=== PATIENT | male | born 1945 | race Caucasian/White ===

== ENCOUNTER → 2019-02-21 | Outpatient (CLI) | payer MEDICARE, BC ==
--- NOTE | 2019-02-21 15:24 | XR ---
EXAMINATION TYPE: XR chest 2V DATE OF EXAM: 02/21/2019 COMPARISON: Prior chest x-ray 06/17/2012 HISTORY: Cough and dysphasia TECHNIQUE: Frontal and lateral views of the chest are obtained. FINDINGS: There is no focal air space opacity, pleural effusion, or pneumothorax seen. The cardiac silhouette size is stable, enlarged. The osseous structures are intact. Patient is post median ster notomy. Aorta is dense. Patient is post aortic valve replacement. IMPRESSION: Stable cardiomegaly.
== END | disposition home or self-care (01) ==
LOC: RADXRMAIN 14:03
PROVIDERS: ATTEND Otolaryngology
DX: I51.7 Cardiomegaly (principal); R13.10 Dysphagia, unspecified
CPT/HCPCS: 71046

== ENCOUNTER → 2019-02-28 | Outpatient (CLI) | payer MEDICARE, BC ==
--- NOTE | 2019-02-28 10:38 | FL ---
EXAMINATION TYPE: FL barium swallow DATE OF EXAM: 02/28/2019 CLINICAL HISTORY: Cough and dysphasia TECHNIQUE: A double contrast esophagram is performed utilizing air and barium. A total of 2.07 declan braden of fluoroscopy time was utilized with 53 fluoroscopic images saved. COMPARISON: None FINDINGS: The esophagus shows normal motility and emptying into the stomach in the upright position h owever in the supine position there is delayed passage of contrast with blunted secondary wave. No te rtiary contractions are identified. There is a small hiatal hernia persistent throughout the examinat ion. On the lateral view there is narrowing of the upper cervical esophagus with the appearance of a cricopharyngeal bar such as on image 26/53 at C5-C6. No significant gastroesophageal reflux was seen during real time performance of this study. However moderate grade intraesophageal reflux is seen on the gravity independent portion of the examination. IMPRESSION: 1. Small hiatal hernia. 2. 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 3. 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
== END | disposition home or self-care (01) ==
LOC: RADUSWWP 09:24
PROVIDERS: ATTEND Otolaryngology
DX: K44.9 Diaphragmatic hernia without obstruction or gangrene (principal); K21.9 Gastro-esophageal reflux disease without esophagitis; K22.2 Esophageal obstruction; R93.3 Abnormal findings on diagnostic imaging of other parts of digestive tract
CPT/HCPCS: 74220

== ENCOUNTER 2019-04-02 10:33 | Day surgery (SDC) | payer MEDICARE, BC ==
[2019-04-01 08:39] VITALS: BMI 38.5
[~2019-04-02 10:33] MED LIST: LACTATED RINGERS 1,000 ML IV SCH; LIDOCAINE 1% 20 ML VIAL (10MG/ML) FOR IV START INTRADERMA PRN
[2019-04-02 11:16] VITALS: TEMP 97.6
[2019-04-02] MEDS ORDERED: PROPOFOL 10 MG/ML 20 ML VIAL IV ONE (12:01)
[2019-04-02] MEDS ORDERED: LIDOCAINE 1% INJ 10MG/ML (20 ML MDV) ONE (12:01)
--- NOTE | 2019-04-02 12:33 | P.PCN ---
Date of Procedure: 04/02/19 Procedure(s) Performed: Brief history: Patient is a pleasant 74 -year-old white male, scheduled for an elective upper endoscopy as well as colonoscopy as a part of evaluation of evaluation of intermittent dysphagia to solids and screening for colorectal neoplasia. He had esophageal surgery as an infant and since then he is been having intermittent dysphagia to solids and liquids. He is hence scheduled for an upper endoscopy with possible dilation. Procedure performed: Esophagogastroduodenoscopy with biopsy Colonoscopy and snare polypectomy Preoperative diagnosis: Intermittent dysphagia to solids Screening for colon cancer Anesthesia: MAC Procedure: After informed consent was obtained from the patient was brought into the endoscopy unit and IV sedation was administered by anesthesia under continuous monitoring. Initially upper endoscopy was done. The Olympus GF 160 video endoscope was inserted inserted into the mouth and esophagus intubated without any difficulty and was gradually advanced into the stomach and duodenum and carefully examined. The bulb and second part of the duodenum appeared normal. The scope was then withdrawn into the stomach adequately insufflated with air and upon careful examination the antrum had mild gastritis and biopsies were done from this area. Thed body, cardia and fundus appeared normal. The scope was then withdrawn into the esophagus. He was a short segment of Nelson's esophagus extending from 39-40 cm to the incisors and this was biopsied. The GE junction was located at 40 cm to the incisors. It appeared regular with no erythema erosions or ulcerations. Rest of the esophagus appeared normal. There was no evidence of esophageal stricture. Patient tolerated the procedure well. At this time the patient continued to remain sedation. Initial digital rectal examination was normal. Olympus CF 160 video colonoscope was then inserted into the rectum and gradually advanced to the cecum without any difficulty. Careful examination was performed as the scope was gradually being withdrawn. The prep wasfair. In the base of the cecum there was a 1.5 cm polyp that was removed by snare polypectomy. The cecum, ascending colon, transverse colon, was normal. In the descending colon there was a sessile polyp that was removed by snare polypectomy. Rest of the descending colon, sigmoid colon and rectum appeared normal. Retroflexion was performed in the rectum and no lesions were noted. Patient tolerated the procedure well. Impression: 1. Upper endoscopy revealed mild antral gastritis and short segment Nelson's esophagus but no evidence of esophageal stricture 2. Colonoscopy revealed 1.5 cm broad-based cecal polyp status post polypectomy and a 5 mm descending colon polyp status post polypectomy. Recommendations: Findings of this examination were discussed with the patient as well as a family. She was was advised to follow with the biopsy results. If the biopsy shows adenoma he can have a repeat colonoscopy in 3 years.
[2019-04-02 13:05] VITALS: BP 158/79; PULSE 55; RESP 16
== END 2019-04-02 13:25 | disposition home or self-care (01) ==
LOC: ORWHC2ENDO 10:33
PROVIDERS: ATTEND Internal Medicine Gastroenterology
DX: Z12.11 Encounter for screening for malignant neoplasm of colon (principal); K29.50 Unspecified chronic gastritis without bleeding; D12.0 Benign neoplasm of cecum; D12.4 Benign neoplasm of descending colon; K22.70 Barrett's esophagus without dysplasia; K21.0 Gastro-esophageal reflux disease with esophagitis; R13.10 Dysphagia, unspecified; Z79.899 Other long term (current) drug therapy; Z88.1 Allergy status to other antibiotic agents; Z88.0 Allergy status to penicillin; Z98.890 Other specified postprocedural states
CPT/HCPCS: 88305; 45385; 43239; J2001; J2704

== ENCOUNTER → 2019-05-03 | Outpatient (CLI) | payer MEDICARE, BC ==
--- NOTE | 2019-05-03 17:33 | CT ---
EXAMINATION TYPE: CT brain wo con DATE OF EXAM: 05/03/2019 COMPARISON: None HISTORY: Dizziness x several weeks. CT DLP: 1162.8 mGycm Automated exposure control for dose reduction was used. FINDINGS: There is mild cerebral cortical atrophy. There is no mass effect nor midline shift. There is no sign of intracranial hemorrhage. The calvarium is intact. IMPRESSION: NEGATIVE CT SCAN OF THE BRAIN. MILD ATROPHY.
== END | disposition home or self-care (01) ==
LOC: RADCTMAIN 11:05
PROVIDERS: ATTEND Internal Medicine
DX: G31.89 Other specified degenerative diseases of nervous system (principal)
CPT/HCPCS: 70450

== ENCOUNTER → 2019-06-17 | Outpatient (CLI) | payer MEDICARE, BC ==
[2019-06-17 17:43] LABS: Albumin/Globulin Ratio 2.67 (1.60-3.17); Anion Gap 10.5 mmol/L (4.00-12.00); BUN/Creat Ratio 27.5 Ratio (12.00-20.00); Calcium 9.2 mg/dL (8.7-10.3); Carbon Dioxide 23.5 mmol/L (21.6-31.8); Globulin 1.5 g/dL (1.6-3.3); Potassium 4.4 mmol/L (3.5-5.5); Total Bilirubin 0.6 mg/dL (0.2-1.2); Total Protein 5.5 g/dL (6.2-8.2)
== END | disposition home or self-care (01) ==
LOC: LABWHC1 10:55
PROVIDERS: ATTEND Internal Medicine Interventional Cardiology
DX: I25.10 Atherosclerotic heart disease of native coronary artery without angina pectoris (principal); Z95.2 Presence of prosthetic heart valve
CPT/HCPCS: 36415; 80053; 83880

== ENCOUNTER → 2019-06-19 | Outpatient (CLI) | payer MEDICARE, BC | END | disposition home or self-care (01) | LOC: CPPFTMAIN 14:16 | PROVIDERS: ATTEND Internal Medicine Interventional Cardiology | DX: R06.00 Dyspnea, unspecified (principal) | CPT/HCPCS: 94060; 94726; 94729 ==

== ENCOUNTER 2019-07-02 06:54 | Day surgery (SDC) | payer MEDICARE, BC ==
[2019-06-30 13:55] VITALS: BMI 23.6
[2019-07-02] MEDS ORDERED: SODIUM CHLORIDE 0.9% 500 ML 500 ML IV ONE (07:35)
[2019-07-02] MEDS ORDERED: CLINDAMYCIN 900 MG in DEXTROSE 5% IN WATER 50 ML IVPB ONE ×2 (07:39)
[2019-07-02] MEDS ORDERED: CLINDAMYCIN 600 MG in SODIUM CHLORIDE 0.9% IRRIGATIO 250 ML IRRIGATION ONE (07:39)
[2019-07-02] MEDS ORDERED: MIDAZOLAM 2 MG/2 ML VIAL ONE (08:18)
[2019-07-02] MEDS ORDERED: diphenhydrAMINE 50 MG/ML 1 ML VIAL ONE (08:18)
[2019-07-02] MEDS ORDERED: fentaNYL (PF) 50 MCG/ML 2 ML AMP ONE (08:18)
[2019-07-02] MEDS ORDERED: IV FLUID CONTINUATION 900 ML IV ONE (08:19)
[2019-07-02 08:26] LABS: HCT 44.8 % (39.0-53.0); HGB 15.3 gm/dL (13.0-17.5); MCH 30.3 pg (25.0-35.0); MCHC 34.1 g/dL (31.0-37.0); MCV 88.7 fL (80.0-100.0); Mean Platelet Volume 6.9; Platelet Count 129 k/uL (150-450); RBC 5.05 m/uL (4.30-5.90); RDW 14.3 % (11.5-15.5); WBC 5.8 k/uL (3.8-10.6)
[2019-07-02] MEDS ORDERED: IOPAMIDOL-250 50ML BTL IV ONE (08:31)
[2019-07-02] MEDS ORDERED: CLINDAMYCIN 150 MG/ML 4 ML VIAL IVPB ONE (08:49)
[2019-07-02] MEDS ORDERED: CLINDAMYCIN 600 MG in SODIUM CHLORIDE 0.9% 250 ML IRRIGATION ONE (08:51)
[2019-07-02] MEDS ORDERED: LIDOCAINE 1% INJ 10MG/ML (20 ML MDV) SQ ONE ×2 (08:58→09:12)
[2019-07-02 09:05] LABS: Eosinophils # (M) 0.12 k/uL (0-0.7); Lymphocytes # (M) 1.86 k/uL (1.0-4.8); Monocytes # (M) 0.41 k/uL (0-1.0); Neutrophils # (M) 3.42 k/uL (1.3-7.7); Neutrophils % (M) 59 %; Nucleated Red Blood Cells 0 /100 WBC (0-0); Total Cells Counted 100
[2019-07-02] MEDS ORDERED: HYDROcodone/APAP 5-325MG 1 EACH TAB PO PRN (10:33)
--- NOTE | 2019-07-02 10:33 | P.PRLE ---
RE: Jhonatan Rod Dear Dr. Cohn Mr. Jhonatan Rod has been quite symptomatic for the last several weeks with tiredness fatigue and intermittent dizziness. He has advanced AV block following TAVR with significant bradycardia He underwent a biventricular pacemaker implantation with His bundle pacing to avoid 100% RV pacing and future cardio myopathy. He is selectively pacing the His bundle and therefore his twelve-lead ECG shows a QRS that is very narrow and about 50 ms after the pacing spike It will look very different from and RV paced rhythm Hopefully this helps preserve his LV size and function Thank you for entrusting me with the care of the patient Warm regards Sincerely Uli Hudson
--- NOTE | 2019-07-02 11:24 | CE ---
CARDIAC ELECTROPHYSIOLOGY REPORT Mr. Jhonatan Rod is a 74-year-old male patient who has been complaining of tiredness and fatigue and dizzy spells for over a month now. He saw Dr. Beasley last week and he was found to be in advanced heart block with high-grade second-degree AV block Mobitz 2 with intermittent third-degree heart block. Beta blockers were discontinued. He comes in again today and on his EKG once again, his heart rates are in the 40s, sinus mechanism with second-degree AV block alternating with intermittent complete heart block with a narrow QRS. A permanent pacemaker was recommended. However, with a standard permanent pacemaker, he will have 100% RV pacing on account of his underlying AV block. Therefore, a biventricular pacemaker was recommended. Patient was brought to the EP lab in a fasting state. Written informed consent was obtained prior to the procedure. The left shoulder area was prepped and draped as per protocol and 1% lidocaine was used for local anesthesia. A 4 cm incision was made parallel to the deltopectoral groove, about 1.5 cm medial to it. The incision was carried down to the level of the pectoralis muscle. A subfascial pocket was made. Hemostasis was assured. The left axillary vein was accessed at 3 separate points under fluoroscopy and via appropriately-sized introducer sheaths 3 leads were positioned. The right atrial lead was a 52 cm, model #5076 serial number [id number]. P waves were 1.9 mV. Pacing impedance 827 ohms. Pacing threshold 0.5 V at 0.5 milliseconds. Ten volt test was negative. The RV lead was positioned in the RV apex. This is a 58 cm, model number Medtronic 5076, serial number [id number]. R-waves were 30 mV. Pacing impedance 668 ohms. Pacing threshold 0.7 V at 0.5 milliseconds. Ten volt test was negative. The third lead was positioned in the His bundle area. The His bundle was mapped. Current of was obtained and this was screwed in and excellent His bundle capture was noted. Nonselective capture was noted up to 1.4 V at 1 millisecond and below that there was fewer selective capture. Complete loss of capture occurred at 0.6 V at 1 milliseconds. All 3 sheaths were removed. The leads were secured to the underlying pectoralis muscle using 2 nonabsorbable sutures. Each pocket was irrigated with antibiotic solution. Leads were connected to the generator. Model number W1TR02, serial number [id number]. The leads and generator were then placed in a subfascial pocket. The wound was closed in 3 layers and dressed per protocol. RESULT: Successful biventricular pacemaker implantation with physiologic septal pacing for high- grade AV block with Mobitz 2 second-degree AV block with intermittent third-degree heart block (third-degree heart block with symptoms of dizziness, lightheadedness and shortness of breath on exertion for over a month). This obviously has persisted despite stopping beta blockers. His heart rates today were still in the 40s with advanced heart block and he underwent successful biventricular pacemaker implantation with physiologic septal pacing. PLAN: Resume beta blockers once again and resume all other home medications. MMODL / IJN: [id number] /
[2019-07-02] MEDS: SODIUM CHLORIDE 0.9% 1,000 ML IV SCH ×2 (11:51)
[2019-07-02] MEDS ORDERED: ACETAMINOPHEN IV (For NPO) 1,000 MG in EMPTY BAG 1 BAG IVPB ONE (12:00)
[2019-07-02] MEDS: CLINDAMYCIN 900 MG in DEXTROSE 5% IN WATER 50 ML IVPB SCH ×4 (14:18→20:52)
[2019-07-02 15:14] VITALS: RESP 18
[2019-07-02] MEDS: ACETAMINOPHEN TAB 325 MG TAB PO PRN ×2 (16:19→23:26)
[2019-07-02 16:47] LABS: Glucose,Whole Blood 119 mg/dL (75-99)
[2019-07-02] MEDS ORDERED: ASPIRIN 81 MG PO SCH (21:30)
[2019-07-02] MEDS ORDERED: ATORVASTATIN 40 MG TAB PO SCH (22:00)
[2019-07-02] MEDS ORDERED: CITALOPRAM HYDROBROMIDE 20 MG TAB PO SCH (22:00)
[2019-07-02] MEDS: DOXAZOSIN 4 MG TAB PO SCH (22:31)
[2019-07-02] MEDS: PANTOPRAZOLE 40 MG TABLET PO SCH (22:32)
[2019-07-02] MEDS: FUROSEMIDE 20 MG TAB PO SCH (22:32)
[2019-07-03] MEDS: CLINDAMYCIN 900 MG in DEXTROSE 5% IN WATER 50 ML IVPB SCH ×4 (04:11→10:24)
[2019-07-03] MEDS: SODIUM CHLORIDE 0.9% 1,000 ML IV SCH ×2 (06:20)
[2019-07-03] MEDS: FUROSEMIDE 20 MG TAB PO SCH (08:07)
[2019-07-03] MEDS: ACETAMINOPHEN TAB 325 MG TAB PO PRN (08:12)
[2019-07-03] MEDS: DOXAZOSIN 4 MG TAB PO SCH (08:13)
[2019-07-03] MEDS: PANTOPRAZOLE 40 MG TABLET PO SCH (08:13)
--- NOTE | 2019-07-03 08:44 | XR ---
EXAMINATION TYPE: XR chest 2V DATE OF EXAM: 07/03/2019 COMPARISON: 02/21/2019 INDICATION: Lead placement check TECHNIQUE: Frontal and lateral views of the chest are obtained. FINDINGS: The heart size is normal. The pulmonary vasculature is normal. The lungs are clear. No pneumothorax is evident. A 3-lead pacemaker has been placed over the left ch est. Sternotomy wires are present from prior surgery. IMPRESSION: 1. No pneumothorax post pacemaker placement.
[2019-07-03] MEDS ORDERED: FINASTERIDE 5 MG TAB PO SCH (09:00)
[2019-07-03] MEDS ORDERED: ISOSORBIDE MONONITRATE 10 MG TAB PO SCH (09:00)
[2019-07-03] MEDS ORDERED: SPIRONOLACTONE 25 MG TAB PO SCH (09:00)
[2019-07-03 11:41] VITALS: BP 145/80; PULSE 72; TEMP 97.8
--- NOTE | 2019-07-03 13:18 | P.DS ---
Providers Attending physician: Uli Hudson Primary care physician: Yinka Cohn [facility] Course: Patient is a 74-year-old male with a past medical history significant for advanced heart block who presented for permanent pacemaker placement. Patient had been having symptoms of tiredness, fatigue, shortness of breath on exertion, and dizziness over the last few weeks. He saw Dr. Beasley in the office was found to be in second-degree AV block type II with intermittent third-degree he art block. Beta blockers were discontinued and he remained in second-degree heart block. Yesterday he underwent successful biventricular pacemaker implantation with septal physiologic pacing. He has done well overnight. No acute events overnight. Patient seen and examined sitting up in his chair. States he has been walking up and down the hallways and his symptoms have completely resolved. States "this is the best he has felt in months". Denies any dizziness, lightheadedness, presyncope or syncope. No chest pain or shortness of breath. Chest x-ray today showed no pneumothorax Device check revealed normally functioning biventricular pacemaker Bedside telemetry reveals biventricular pacing with narrow QRS WBC 5.8, hemoglobin 15.3, platelets 129 Temperature 97.8F, pulse 72, respirations 18, blood pressure 145/80, oxygen saturation 96% on room air Patient seen and examined sitting up in the chair, in no acute distress Lungs are clear to auscultation bilaterally Heart is regular, soft systolic murmur Pacemaker dressing clean dry and intact He does have a history of lymphedema, minimal swelling in the left arm Elevated JVD No lower extremity edema Impression Advanced second-degree AV block type II with intermittent third-degree heart block that is status post biventricular pacemaker with septal physiologic pacing Plan Restart home dose of metoprolol Continue all other cardiac medications Educated the patient to elevate his arm at home and come his fists to help with the edema in his left arm Discussed activity restrictions the patient He is free to be discharged after he completes his antibiotics Follow-up in the device clinic and with Dr. Beasley as previously scheduled Plan - Discharge Summary Discharge Rx Participant: No New Discharge Prescriptions: New Metoprolol Tartrate [Lopressor] 50 mg PO BID #180 tab No Action Citalopram Hydrobromide [CeleXA] 20 mg PO HS Atorvastatin [Lipitor] 40 mg PO HS Spironolactone 50 mg PO Q2D Omeprazole 20 mg PO BID Furosemide [Lasix] 20 mg PO BID Finasteride [Proscar] 5 mg PO DAILY Doxazosin Mesylate 8 mg PO BID Aspirin [Adult Low Dose Aspirin EC] 81 mg PO HS Isosorbide Mononitrate [Ismo] 5 mg PO DAILY Discharge Medication List Aspirin [Adult Low Dose Aspirin EC] 81 mg PO HS 04/01/19 [History] Atorvastatin [Lipitor] 40 mg PO HS 04/01/19 [History] Citalopram Hydrobromide [CeleXA] 20 mg PO HS 04/01/19 [History] Doxazosin Mesylate 8 mg PO BID 04/01/19 [History] Finasteride [Proscar] 5 mg PO DAILY 04/01/19 [History] Furosemide [Lasix] 20 mg PO BID 04/01/19 [History] Omeprazole 20 mg PO BID 04/01/19 [History] Spironolactone 50 mg PO Q2D 04/01/19 [History] Isosorbide Mononitrate [Ismo] 5 mg PO DAILY 07/02/19 [History] Metoprolol Tartrate [Lopressor] 50 mg PO BID #180 tab 07/02/19 [Rx] Follow up Appointment(s)/Referral(s): Ned Beasley MD [STAFF PHYSICIAN] - 07/11/19 8:30 am (Device clinic follow-up same time. Follow Dr. Beasley/Leigha Vivar as previously scheduled 07/11/19 0830 ) Patient Instructions/Handouts: Pacemaker (DC) Activity/Diet/Wound Care/Special Instructions: PATIENT EDUCATION MATERIAL Instructions following a heart rhythm device implant. 1. Keep dressing DRY for 5 DAYS. You may cover the area with Saran or Cling Wrap, prior to a shower. 2. The dressing will be removed in the Device Clinic at [facility]. Absorbable sutures were used to close the wound. 3. Avoid raising the left arm above the shoulder level. 4 week restriction 4. Avoid arm movements, like backscratching, rubbing the head, or pulling on a cord. 4 weeks restriction 5. Gentle range of motion movements of the shoulder, closest to the incision should be performed to avoid a frozen shoulder. (Pendulum exercises of the shoulder) 6. The opposite arm may be used freely. 7. Avoid driving for 7 days. 8. Avoid activities such as golfing, swimming, weed whacking, lifting more than 10 pounds weight, bowling, gymnastics and weight training/lifting. (6 weeks restriction) 9. Activities such as wood chopping with an axe, pull-ups in the gymnasium, power lifting, arc-welding, being close to home induction cooktops will always be a problem. 10. Arm sling is only a reminder not to raise the arm above the head. You do not need to keep the arm completely immobilized. Your free to move the arm and use it and for normal activities. In case of any problems, please call [facility], [place], @ [phone], Attention: Device Clinic Device clinic follow-up in 5 days Follow-up with primary sheet combining operator Dr. Beasley as previously scheduled or in 2-3 months Resume home dose of beta blockers Continue all other medications unchanged Discharge Disposition: HOME SELF-CARE
== END 2019-07-03 13:45 | disposition home or self-care (01) ==
LOC: CATHEP 06:54 → 1SOBS 10:25 → CATHEP 07-03 13:45
PROVIDERS: ATTEND Internal Medicine Clinical Cardiac Electrophysiology
DX: I44.1 Atrioventricular block, second degree (principal); I44.2 Atrioventricular block, complete; R00.1 Bradycardia, unspecified; R53.83 Other fatigue; R42 Dizziness and giddiness; I25.10 Atherosclerotic heart disease of native coronary artery without angina pectoris; I10 Essential (primary) hypertension; I89.0 Lymphedema, not elsewhere classified; G47.33 Obstructive sleep apnea (adult) (pediatric); E78.2 Mixed hyperlipidemia; Z95.2 Presence of prosthetic heart valve; Z79.82 Long term (current) use of aspirin; Z79.899 Other long term (current) drug therapy; Z88.0 Allergy status to penicillin; Z88.1 Allergy status to other antibiotic agents; Z87.891 Personal history of nicotine dependence; Z90.49 Acquired absence of other specified parts of digestive tract; Z96.659 Presence of unspecified artificial knee joint
CPT/HCPCS: 33208; 33225; 85025; 71046; C1769 ×3; C1892; C1898; C2621; S0138; J2250; J1200; J2001; J3010; Q9966

== ENCOUNTER → 2020-03-03 | Outpatient (CLI) | payer MEDICARE, BC ==
[2020-03-03 12:31] LABS: African American GFR (CKD) 101.3 (60.0-200.0); Albumin/Globulin Ratio 2.5 (1.60-3.17); Anion Gap 4.8 mmol/L (4.00-12.00); Calcium 9.2 mg/dL (8.7-10.3); Carbon Dioxide 27.2 mmol/L (21.6-31.8); Chol/HDL Ratio 3.89; Globulin 1.6 g/dL (1.6-3.3); LDL Cholesterol,Calculated 53.4 mg/dL (0.0-131.0); Non-African American GFR(CKD) 87.4 (60.0-200.0); Potassium 4.3 mmol/L (3.5-5.5); Total Bilirubin 0.9 mg/dL (0.2-1.2); Total Protein 5.6 g/dL (6.2-8.2); VLDL Calculation 27.6 mg/dL (5.00-40.00)
== END | disposition home or self-care (01) ==
LOC: LABWHC1 07:04
PROVIDERS: ATTEND Internal Medicine Interventional Cardiology
DX: E78.2 Mixed hyperlipidemia (principal)
CPT/HCPCS: 36415; 80053; 80061

== ENCOUNTER → 2020-09-24 | Outpatient (CLI) | payer MEDICARE ==
[2020-09-24 11:05] LABS: African American GFR (CKD) 101.3 (60.0-200.0); Albumin/Globulin Ratio 2.5 (1.60-3.17); Anion Gap 5.1 mmol/L (4.00-12.00); BUN/Creat Ratio 28.75 Ratio (12.00-20.00); Calcium 9.1 mg/dL (8.7-10.3); Carbon Dioxide 28.9 mmol/L (21.6-31.8); Chol/HDL Ratio 3.86; Globulin 1.6 g/dL (1.6-3.3); LDL Cholesterol,Calculated 59.4 mg/dL (0.0-131.0); Non-African American GFR(CKD) 87.4 (60.0-200.0); Potassium 4.7 mmol/L (3.5-5.5); Total Bilirubin 0.9 mg/dL (0.2-1.2); Total Protein 5.6 g/dL (6.2-8.2); VLDL Calculation 23.6 mg/dL (5.00-40.00)
== END | disposition home or self-care (01) ==
LOC: LABWHC1 07:02
PROVIDERS: ATTEND Internal Medicine Interventional Cardiology
DX: E78.2 Mixed hyperlipidemia (principal)
CPT/HCPCS: 36415; 80053; 80061

== ENCOUNTER → 2021-01-24 | Outpatient (CLI) | payer MEDICARE ==
[2021-01-24 10:41] LABS: Albumin 4.1 g/dL (3.80-4.90); Albumin/Globulin Ratio 2.41 (1.60-3.17); Anion Gap 5.9 mmol/L (4.00-12.00); Calcium 9.1 mg/dL (8.7-10.3); Carbon Dioxide 26.1 mmol/L (21.6-31.8); Chol/HDL Ratio 3.9; Globulin 1.7 g/dL (1.6-3.3); LDL Cholesterol,Calculated 65.6 mg/dL (0.0-131.0); Non-African American GFR(CKD) 92.3 (60.0-200.0); Potassium 4.5 mmol/L (3.5-5.5); Total Bilirubin 0.8 mg/dL (0.3-1.2); Total Protein 5.8 g/dL (6.2-8.2); VLDL Calculation 18.4 mg/dL (5.00-40.00)
== END | disposition home or self-care (01) ==
LOC: LABWHC1 06:54
PROVIDERS: ATTEND Internal Medicine Interventional Cardiology
DX: E78.2 Mixed hyperlipidemia (principal)
CPT/HCPCS: 36415; 80053; 80061

== ENCOUNTER → 2021-07-19 | Outpatient (CLI) | payer MEDICARE ==
[2021-07-19 12:12] LABS: African American GFR (CKD) 101.3 (60.0-200.0); Albumin 3.9 g/dL (3.8-4.9); Albumin/Globulin Ratio 2.21 (1.60-3.17); Anion Gap 10.4 mmol/L (4.00-12.00); BUN/Creat Ratio 23.25 Ratio (12.00-20.00); Blood Urea Nitrogen 18.3 mg/dL (9.0-27.0); Chol/HDL Ratio 3.27 Ratio; Globulin 1.7 g/dL (1.6-3.3); HDL Cholesterol 33.6 mg/dL (40.00-60.00); LDL Cholesterol,Calculated 52.4 mg/dL (0.0-131.0); Non-African American GFR(CKD) 87.4 (60.0-200.0); Potassium 4.3 mmol/L (3.5-5.5); Total Bilirubin 0.9 mg/dL (0.30-1.20); Total Protein 5.6 g/dL (6.2-8.2)
== END | disposition home or self-care (01) ==
LOC: LABWHC1 07:01
PROVIDERS: ATTEND Nurse Practitioner Adult Health
DX: I10 Essential (primary) hypertension (principal); E78.2 Mixed hyperlipidemia
CPT/HCPCS: 36415; 80053; 80061

== ENCOUNTER → 2022-01-20 | Outpatient (CLI) | payer MEDICARE ==
[2022-01-20 11:24] LABS: ALT 26 U/L (10-49); AST 22 U/L (14-35); Chol/HDL Ratio 3.07 Ratio; VLDL Calculation 19.54 mg/dL (5.00-40.00)
== END | disposition home or self-care (01) ==
LOC: LABWHC1 07:05
PROVIDERS: ATTEND Nurse Practitioner Adult Health
DX: E78.2 Mixed hyperlipidemia (principal)
CPT/HCPCS: 36415; 80061; 84450; 84460

== ENCOUNTER → 2022-04-17 | Outpatient (CLI) | payer MEDICARE ==
--- NOTE | 2022-04-17 07:47 | XR ---
EXAMINATION TYPE: XR chest 2V DATE OF EXAM: 04/17/2022 COMPARISON: Chest x-ray July 03, 2019 HISTORY: Reactive airway disease. TECHNIQUE: Frontal and lateral views of the chest are obtained. FINDINGS: Sternal wires redemonstrated. Cardiac silhouette size is stable and upper limits of normal with dual- lead pacemaker redemonstrated along with atherosclerotic thoracic aorta again seen. Metallic aortic v alve redemonstrated. Mild Chronic parenchymal changes bilaterally without suspicious focal airspace opacity, pleural effusion, or pneumothorax. Degenerative spurring in the spine. Advanced degenerativ e changes bilateral shoulders redemonstrated. IMPRESSION: Chronic changes without acute pulmonary process. No significant change from prior chest x-ray.
[2022-04-17 10:43] LABS: Basophils # (A) 0.06 X 10*3/uL (0.00-0.10); Basophils % (A) 0.7 %; Eosinophils # (A) 0.16 X 10*3/uL (0.04-0.35); HCT 40.3 % (39.6-50.0); HGB 12.7 g/dL (13.0-17.0); Immature Grans, Automated 0.7 %; Lymphocytes # (A) 2.96 X 10*3/uL (0.90-5.00); Lymphocytes % (A) 36.7 %; MCH 26.8 pg (27.0-32.0); MCHC 31.5 g/dL (32.0-37.0); MCV 85.2 fL (80.0-97.0); Monocytes # (A) 0.65 X 10*3/uL (0.20-1.00); Monocytes % (A) 8.1 %; NRBC Per 100 WBC 0 /100 WBCS (0.0-0.0); Neutrophils # (A) 4.17 X 10*3/uL (1.80-7.70); Neutrophils % (A) 51.8 %; Platelet Count 135 X 10*3/uL (140-440); RBC 4.73 X 10*6/uL (4.40-5.60); RDW 14.8 % (11.5-14.5); WBC 8.06 X 10*3/uL (4.50-10.00)
[2022-04-17 11:06] LABS: ALT 23 U/L (10-49); AST 26 U/L (14-35); African American GFR (CKD) 105.5 (60.0-200.0); Albumin 3.7 g/dL (3.8-4.9); Albumin/Globulin Ratio 1.42 (1.60-3.17); Alkaline Phosphatase 80 U/L (41-126); Blood Urea Nitrogen 15.4 mg/dL (9.0-27.0); Calcium 9.3 mg/dL (8.7-10.3); Carbon Dioxide 23.1 mmol/L (20.0-27.5); Chloride 107 mmol/L (96-109); Chol/HDL Ratio 3.42 Ratio; Globulin 2.6 g/dL (1.6-3.3); Glucose 112 mg/dL (70-110); LDL Cholesterol,Calculated 50.4 mg/dL (0.0-131.0); Potassium 4.2 mmol/L (3.5-5.5); Sodium 139 mmol/L (135-145); Total Protein 6.3 g/dL (6.2-8.2)
== END | disposition home or self-care (01) ==
LOC: LABWHC1 06:56
PROVIDERS: ATTEND Internal Medicine
DX: E78.5 Hyperlipidemia, unspecified (principal); J68.3 Other acute and subacute respiratory conditions due to chemicals, gases, fumes and vapors
CPT/HCPCS: 80061; 80053; 84443; 85025; 71046; 36415; G0103; 83036

== ENCOUNTER → 2022-07-11 | Outpatient (CLI) | payer MEDICARE ==
[2022-07-11 11:18] LABS: HCT 37.4 % (39.6-50.0); HGB 12.2 g/dL (13.0-17.0); MCH 26.2 pg (27.0-32.0); MCHC 32.6 g/dL (32.0-37.0); MCV 80.4 fL (80.0-97.0); Mean Platelet Volume 11.1 fL (9.5-12.2); NRBC Per 100 WBC 0 /100 WBCS (0.0-0.0); Platelet Count 137 X 10*3/uL (140-440); RBC 4.65 X 10*6/uL (4.40-5.60); RDW 15.8 % (11.5-14.5); WBC 7.31 X 10*3/uL (4.50-10.00)
[2022-07-11 11:37] LABS: ALT 16 U/L (10-49); AST 19 U/L (14-35); African American GFR (CKD) 95.1 (60.0-200.0); Albumin 3.9 g/dL (3.8-4.9); Albumin/Globulin Ratio 1.56 (1.60-3.17); Alkaline Phosphatase 95 U/L (41-126); BUN/Creat Ratio 24.11 Ratio (12.00-20.00); Blood Urea Nitrogen 21.7 mg/dL (9.0-27.0); Calcium 9.2 mg/dL (8.7-10.3); Carbon Dioxide 22.9 mmol/L (20.0-27.5); Chloride 107 mmol/L (96-109); Chol/HDL Ratio 2.89 Ratio; Globulin 2.5 g/dL (1.6-3.3); Glucose 113 mg/dL (70-110); LDL Cholesterol,Calculated 47.8 mg/dL (0.0-131.0); Non-African American GFR(CKD) 82.1 (60.0-200.0); Potassium 4.3 mmol/L (3.5-5.5); Sodium 139 mmol/L (135-145); Total Protein 6.4 g/dL (6.2-8.2); VLDL Calculation 17.44 mg/dL (5.00-40.00)
== END | disposition home or self-care (01) ==
LOC: LABWHC1 07:04
PROVIDERS: ATTEND Internal Medicine Interventional Cardiology
DX: I48.0 Paroxysmal atrial fibrillation (principal); E78.2 Mixed hyperlipidemia
CPT/HCPCS: 36415; 80053; 80061; 85027

== ENCOUNTER → 2022-08-17 | Outpatient (CLI) | payer MEDICARE | END | disposition home or self-care (01) | LOC: LABWHC1 07:06 | PROVIDERS: ATTEND Internal Medicine Interventional Cardiology | DX: R06.09 Other forms of dyspnea (principal) | CPT/HCPCS: 36415; 83880 ==

== ENCOUNTER → 2023-01-29 | Outpatient (CLI) | payer MEDICARE ==
[2023-01-29 11:18] LABS: ALT 28 U/L (10-49); AST 22 U/L (14-35); African American GFR (CKD) 100.3 (60.0-200.0); Albumin 3.8 g/dL (3.8-4.9); Albumin/Globulin Ratio 2.02 (1.60-3.17); Alkaline Phosphatase 81 U/L (41-126); BUN/Creat Ratio 23.78 Ratio (12.00-20.00); Blood Urea Nitrogen 18.5 mg/dL (9.0-27.0); Carbon Dioxide 22.6 mmol/L (20.0-27.5); Chloride 108 mmol/L (96-109); Chol/HDL Ratio 2.51 Ratio; Globulin 1.9 g/dL (1.6-3.3); Glucose 118 mg/dL (70-110); LDL Cholesterol,Calculated 38.2 mg/dL (0.0-131.0); Non-African American GFR(CKD) 86.6 (60.0-200.0); Potassium 4.3 mmol/L (3.5-5.5); Sodium 141 mmol/L (135-145); Total Protein 5.6 g/dL (6.2-8.2); VLDL Calculation 14.44 mg/dL (5.00-40.00)
[2023-01-29 12:28] LABS: HCT 33.6 % (39.6-50.0); HGB 9.7 g/dL (13.0-17.0); MCH 21.5 pg (27.0-32.0); MCHC 28.9 g/dL (32.0-37.0); MCV 74.3 fL (80.0-97.0); NRBC Per 100 WBC 0 /100 WBCS (0.0-0.0); Platelet Count 128 X 10*3/uL (140-440); RBC 4.52 X 10*6/uL (4.40-5.60); RDW 18.7 % (11.5-14.5); WBC 6.53 X 10*3/uL (4.50-10.00)
[2023-01-29 13:08] LABS: Basophils # (A) 0.06 X 10*3/uL (0.00-0.10); Basophils % (A) 0.9 %; Eosinophils % (A) 1.5 %; Immature Grans, Automated 0.3 %; Lymphocytes # (A) 1.84 X 10*3/uL (0.90-5.00); Lymphocytes % (A) 28.2 %; Monocytes # (A) 0.84 X 10*3/uL (0.20-1.00); Monocytes % (A) 12.9 %; Neutrophils # (A) 3.67 X 10*3/uL (1.80-7.70); Neutrophils % (A) 56.2 %
[2023-01-29 13:09] LABS: Elliptocytes 2+; Hypochromasia (M) 2+; Microcytosis (M) 2+
== END | disposition home or self-care (01) ==
LOC: LABWHC1 06:50
PROVIDERS: ATTEND Internal Medicine Interventional Cardiology
DX: I10 Essential (primary) hypertension (principal); E78.2 Mixed hyperlipidemia; R73.9 Hyperglycemia, unspecified
CPT/HCPCS: 36415; 80053; 80061; 83036; 84443; 85025

== ENCOUNTER → 2023-01-30 | Outpatient (CLI) | payer MEDICARE ==
[2023-01-30 10:31] LABS: Anisocytosis Slight; HCT 32.7 % (39.0-53.0); Hypochromasia Marked; MCH 22.2 pg (25.0-35.0); MCHC 30.6 g/dL (31.0-37.0); MCV 72.7 fL (80.0-100.0); Mean Platelet Volume 8.9; Microcytosis Moderate; Platelet Count 119 k/uL (150-450); Poikilocytosis Slight; RDW 17.7 % (11.5-15.5); WBC 5.6 k/uL (3.8-10.6)
[2023-01-30 10:44] LABS: Reticulocyte % 2.2 % (0.5-2.0)
[2023-01-30 13:46] LABS: Nucleated Red Blood Cells 0 /100 WBC (0-0)
[2023-01-30 13:48] LABS: Eosinophils # (M) 0.06 k/uL (0-0.7); Lymphocytes # (M) 1.29 k/uL (1.0-4.8); Monocytes # (M) 0.56 k/uL (0-1.0); Neutrophils % (M) 66 %; Total Cells Counted 100
[2023-01-30 13:49] LABS: Rouleaux Present
[2023-01-30 16:26] LABS: Protein, Total 5.7 g/dL (6.2-8.2)
[2023-01-31 14:24] LABS: Albumin 3.39 g/dL (3.80-4.90); Gamma Globulin 0.78 g/dL (0.70-1.50)
== END | disposition home or self-care (01) ==
LOC: LABWHC1 08:51
PROVIDERS: ATTEND Internal Medicine
DX: D64.9 Anemia, unspecified (principal)
CPT/HCPCS: 36415; 82607; 82746; 84165; 85025; 85045

== ENCOUNTER 2023-03-27 17:55 | Observation (INO) | payer MEDICARE ==
[2023-03-27 19:02] LABS: Glucose,Whole Blood 94 mg/dL (70-110)
--- NOTE | 2023-03-27 19:30 | CT ---
EXAMINATION TYPE: CT brain wo con CT DLP: 1172.4 mGycm, Automated exposure control for dose reduction was used. DATE OF EXAM: 03/27/2023 7:19 PM COMPARISON: 05/03/2019. CLINICAL INDICATION:Male, 78 years old with history of Altered mental status, AMS TECHNIQUE: Brain: Axial CT images of the brain were obtained with coronal and sagittal reformats created and rev iewed. Contrast used: None. Oral contrast used: None. FINDINGS: Brain: Extra-axial spaces: No abnormal extra-axial fluid collections. Ventricular system: Dilatation in proportion to cerebral atrophy. Cerebral parenchyma: Cerebral atrophy. No acute intraparenchymal hemorrhage or mass effect. The finley -white junction is well differentiated. Cerebellum: Unremarkable. Mass effect: No evidence of midline shift. Intracranial vasculature: unremarkable Soft tissues: Normal. Calvarium/osseous structures: No depressed skull fracture. Paranasal sinuses and mastoid air cells: Mild scattered paranasal sinus disease. Visualized orbits: Orbital contents are intact. IMPRESSION: 1. No acute intracranial process. 2. Nonspecific white matter changes, likely secondary to chronic small vessel ischemic disease.
--- NOTE | 2023-03-27 19:35 | XR ---
EXAMINATION TYPE: XR chest 2V DATE OF EXAM: 03/27/2023 7:22 PM COMPARISON: Chest radiographs from 04/17/2022. TECHNIQUE: XR chest 2V Frontal and lateral views of the chest. CLINICAL INDICATION:Male, 78 years old with history of altered mental status; FINDINGS: Lungs/Pleura: There is no evidence of pleural effusion, focal consolidation, or pneumothorax. Pulmonary vascularity: Unremarkable. Heart/mediastinum: Cardiomediastinal silhouette is enlarged and stable. Post valve repair changes. T hree lead cardiac conduction device overlying the left hemithorax with lead tips projecting over the right ventricle, right atrium and coronary sinus. Musculoskeletal: No acute osseous pathology. Midline sternotomy wires are noted. IMPRESSION: No acute cardiopulmonary disease/process.
[2023-03-27 19:39] LABS: Anisocytosis Moderate; HCT 43.3 % (39.0-53.0); Hypochromasia Slight; MCH 26.2 pg (25.0-35.0); MCHC 32.3 g/dL (31.0-37.0); Mean Platelet Volume 9.1; Microcytosis Moderate; Platelet Count 103 k/uL (150-450); RBC 5.35 m/uL (4.30-5.90); RDW 22.7 % (11.5-15.5); WBC 8.4 k/uL (3.8-10.6)
[2023-03-27 19:43] LABS: Partial Thromboplastin Time 23.2 sec (22.0-30.0); Prothrombin Time 10.7 sec (9.0-12.0)
[2023-03-27 19:50] LABS: ALT 36 U/L (4-49); AST 32 U/L (17-59); African American GFR (CKD) >90 (>60 ml/min/1.73 sqM); Albumin 3.9 g/dL (3.5-5.0); Alkaline Phosphatase 98 U/L (38-126); Anion Gap 7 mmol/L; Blood Urea Nitrogen 13 mg/dL (9-20); Carbon Dioxide 29 mmol/L (22-30); Chloride 105 mmol/L (98-107); Glucose 97 mg/dL (74-99); Non-African American GFR(CKD) 89 (>60 ml/min/1.73 sqM); Potassium 3.9 mmol/L (3.5-5.1); Sodium 141 mmol/L (137-145); Total Bilirubin 1.3 mg/dL (0.2-1.3); Total Protein 6.7 g/dL (6.3-8.2)
--- NOTE | 2023-03-27 19:52 | ED ---
Altered Mental Status HPI - General Chief Complaint: Altered Mental Status Stated Complaint: confusion Time Seen by Provider: 03/27/23 18:55 Source: patient, family, RN notes reviewed Mode of arrival: ambulatory Limitations: altered mental status - History of Present Illness Initial Comments: This is a 78-year-old male who presents to the emergency department for altered mental status. Patient's states that he started his colonoscopy prep with Clenpiq at around 4 PM this evening. 5 PM this evening, his states that he started to become confused. He had previously known that he was not able to have anything to eat or drink due to the colonoscopy tomorrow, however around 5 PM he was asking her what she was making for dinner and if he could have any. He did not remember that he had a colonoscopy coming up and that he could not have anything to eat. This prompted his to bring him to the emergency department. He does take Xarelto, but has not been on this for 3 days due to the upcoming colonoscopy. He has no history of strokes. His states that he has never acted like this before. Patient knows where he is, but does not remember what happened or why he was brought to the emergency department. He does not know the day or who the president is. Denies any fevers, chills, sore throat, cough, dyspnea, chest pain, palpitations, abdominal pain, nausea, vomiting, diarrhea, back pain, or headaches. MD Complaint: altered mental status - Related Data Home Medications Medication Instructions Recorded Confirmed Atorvastatin [Lipitor] 40 mg PO HS 04/01/19 03/27/23 Citalopram Hydrobromide [CeleXA] 20 mg PO HS 04/01/19 03/27/23 Doxazosin Mesylate 8 mg PO BID 04/01/19 03/27/23 Finasteride [Proscar] 5 mg PO DAILY 04/01/19 03/27/23 Furosemide [Lasix] 20 mg PO Q48H 04/01/19 03/27/23 Spironolactone 50 mg PO Q2D 04/01/19 03/27/23 Pantoprazole [Protonix] 40 mg PO DAILY 03/22/23 03/27/23 Rivaroxaban [Xarelto] 20 mg PO HS 03/22/23 03/27/23 Clenpiq 1 dose PO DIRECTED 03/27/23 03/27/23 Ferrous Sulfate [Feosol] 325 mg PO DAILY 03/27/23 03/27/23 Isosorbide Mononitrate ER [Imdur] 30 mg PO DAILY 03/27/23 03/27/23 Previous Rx's Medication Instructions Recorded Metoprolol Succinate [Toprol XL] 100 mg PO DAILY #90 tab 07/03/19 Allergies Allergy/AdvReac Type Severity Reaction Status Date / Time amoxicillin Allergy Rash/Hives Verified 03/27/23 22:22 cephalexin Allergy Rash/Hives Verified 03/27/23 22:22 erythromycin base Allergy Rash/Hives Verified 03/27/23 22:22 Review of Systems ROS Statement: Those systems with pertinent positive or pertinent negative responses have been documented in the HPI. ROS Other: All systems not noted in ROS Statement are negative. 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, see Dr Castellano H&P, has 24 hr heart monitor on, hiatel hernia History of Any Multi-Drug Resistant Organisms: None Reported Past Surgical History: Cardiac Valve Replacement, Cholecystectomy, Hernia Repair, Joint Replacement, Tonsillectomy Additional Past Surgical History / Comment(s): AORTIC VALVE REPLACEMENT 2011, COLONOSCOPY,SKIN GRAFT ON HEAD, LYMPH NODE FROM LT ARM REMOVED, rt knee replac ement, umbilical hernia repair, pacemaker 07/02/2019 Past Anesthesia/Blood Transfusion Reactions: No Reported Reaction Additional Past Anesthesia/Blood Transfusion Reaction / Comment(s): no blood transfusion Past Psychological History: Depression Smoking Status: Former smoker Past Alcohol Use History: None Reported Past Drug Use History: None Reported - Past Family History Mother Family Medical History: Cancer Additional Family Medical History / Comment(s): melanoma Sister(s) Family Medical History: Cancer Additional Family Medical History / Comment(s): breast Father Additional Family Medical History / Comment(s): heart valve replacement, skin ca General Exam Limitations: no limitations General appearance: alert, in no apparent distress Head exam: Present: atraumatic, normocephalic, normal inspection Eye exam: Present: normal appearance, PERRL, EOMI. Absent: scleral icterus, conjunctival injection, periorbital swelling Respiratory exam: Present: normal lung sounds bilaterally. Absent: respiratory distress, wheezes, rales, rhonchi, stridor Cardiovascular Exam: Present: regular rate, normal rhythm, normal heart sounds. Absent: systolic murmur, diastolic murmur, rubs, gallop, clicks GI/Abdominal exam: Present: soft. Absent: distended, tenderness Neurological exam: Present: alert, CN II-XII intact, other (oriented x2) Expanded Speech: Present: fluid speech Cerebellar function: Finger to Nose: Normal, Romberg: Normal Motor strength exam: RUE: 5, LUE: 5, RLE: 5, LLE: 5 Eye Response: (4) open spontaneously Motor Response: (6) obeys commands Verbal Response: (5) oriented [place] Total: 15 Psychiatric exam: Present: normal affect, normal mood Skin exam: Present: warm, dry, intact, normal color. Absent: rash Course Vital Signs 03/27/23 03/27/23 03/27/23 18:43 19:30 20:00 Temperature 98.5 F Pulse Rate 74 71 Respiratory 20 13 Rate Blood Pressure 197/91 153/104 169/87 O2 Sat by Pulse 95 95 Oximetry 03/27/23 03/27/23 03/27/23 21:00 22:31 23:00 Temperature Pulse Rate 76 80 74 Respiratory 23 19 14 Rate Blood Pressure 168/89 192/100 192/100 O2 Sat by Pulse 95 93 L 94 L Oximetry 03/27/23 23:34 Temperature 98.2 F Pulse Rate 69 Respiratory 16 Rate Blood Pressure 147/75 O2 Sat by Pulse 95 Oximetry Medical Decision Making - Medical Decision Making This is a 78-year-old male who presents to the emergency department for altered mental status. Was pt. sent in by a medical professional or institution? @ -No Did you speak to anyone other than the patient for history? @ -Yes, his and son, who essentially provided all of the history. Patient states that he has no current complaints, is unsure what day it is, and is unsure who the president is. Did you review nursing and triage notes? @ -Yes, and I agree, it is accurate with regards to the patient's symptoms. Were old charts reviewed? @ -No Differential Diagnosis? @ -Differential Altered Mental Status: Hypoglycemia, DKA, hypercapnia, ETOH, overdose, CO poisoning, trauma, myxedema coma, HTN encephalopathy, infection, encephalitis, psychosis, intercranial hemorrhage, hepatic encephalopathy, meningitis, CVA, this is not meant to be an all-inclusive list EKG interpreted by me (3pts min.)? @ -EKG interpreted by me demonstrating the following: Electronic ventricular pacemaker. Ventricular rate 72 bpm, QRS duration 155 ms, QTC 470 ms. X-rays interpreted by me (1pt min.)? @ -Chest x-ray obtained, my interpretation identifies no localized consolidations or infiltrates. CT interpreted by me (1pt min.)? @ -Computed tomography scan of the brain and a CT angiogram of the head and neck obtained. My interpretation identifies no evidence of acute ischemic solo es or an aneurysm. U/S interpreted by me (1pt. min.)? @ -None What testing was considered but not performed? (CT, X-rays, U/S, labs)? Why? @ -None What meds were considered but not given? Why? @ -None Did you discuss the management of the patient with other professionals? @ -Yes, Dr. Leiva, who accepts the patient for admission. Did you reconcile home meds? @ -Yes Was smoking cessation discussed for >3mins.? @ -No Was critical care preformed (if so, how long)? @ -No Were there social determinants of health that impacted care today? How? (Homelessness, low income, unemployed, alcoholism, drug addiction, moreno sportation, low edu. Level, literacy, decrease access to med. care, assisted, rehab)? @ -No Was there de-escalation of care discussed even if they declined? (Discuss DNR or withdrawal of care, Hospice)? @ -No What co-morbidities impacted this encounter? (DM, HTN, Smoking, COPD, CAD, Cancer, CVA, Hep., AIDS, mental health diagnosis, sleep apnea, morbid obesity)? @ -HLD, HTN, cancer, CAD Was patient admitted / discharged? @ -Admitted. Lab work obtained and found to be nonactionable. Urinalysis negative for signs of infection. Chest x-ray reveals no acute process. Computed tomography scan of the brain and a CT angiogram of the head and neck obtained. Findings revealed nonspecific white matter changes as well as 50-75% stenosis of the left carotid bifurcation 25% of the right carotid bifurcation. He does also have multiple enlarged lymph nodes in the right upper chest/right axilla and mediastinum concerning for malignancy. Patient has basal cell and osvaldo cell skin cancer, however the extent of this is not entirely clear. While in the emergency department, patient's and son state that he continues to act very confused. He continues to forget that he was scheduled for an upcoming colonoscopy and is not sure why he is here despite being told multiple times. Given the acute onset of altered mental status with unclear cause, patient admitted to medicine for further evaluation. Consult placed for neurology. Undiagnosed new problem with uncertain prognosis? @ -None Drug Therapy requiring intensive monitoring for toxicity (Heparin, Nitro, Insulin, Cardizem)? @ -None Were any procedures done? @ -None Diagnosis/symptom? @ -Altered mental status Acute, or Chronic, or Acute on Chronic? @ -Acute Uncomplicated (without systemic symptoms) or Complicated (systemic symptoms)? @ -Complicated Side effects of treatment? @ -None Exacerbation, Progression, or Severe Exacerbation] @ -Not applicable Poses a threat to life or bodily function? @ -Yes This case was discussed in detail with the attending ED physician, Dr. Ramirez. Presentation, findings, and treatment plan discussed in detail as well. - Lab Data Result diagrams: 03/27/23 19:06 03/27/23 19:06 Lab Results 03/27/23 03/27/23 03/27/23 Range/Units 19:01 19:06 19:06 WBC 8.4 (3.8-10.6) k/uL RBC 5.35 (4.30-5.90) m/uL Hgb 14.0 D (13.0-17.5) gm/dL Hct 43.3 (39.0-53.0) % MCV 81.0 D (80.0-100.0) fL MCH 26.2 (25.0-35.0) pg MCHC 32.3 (31.0-37.0) g/dL RDW 22.7 H (11.5-15.5) % Plt Count 103 L (150-450) k/uL MPV 9.1 Neutrophils % (Manual) 32 % Lymphocytes % (Manual) 63 % Monocytes % (Manual) 3 % Eosinophils % (Manual) 2 % Neutrophils # (Manual) 2.69 (1.3-7.7) k/uL Lymphocytes # (Manual) 5.29 H (1.0-4.8) k/uL Monocytes # (Manual) 0.25 (0-1.0) k/uL Eosinophils # (Manual) 0.17 (0-0.7) k/uL Nucleated RBCs 0 (0-0) /100 WBC Manual Slide Review Performed Hypochromasia Slight Anisocytosis Moderate Microcytosis Moderate Ovalocytes Present PT 10.7 (9.0-12.0) sec INR 1.0 (<1.2) APTT 23.2 (22.0-30.0) sec Sodium (137-145) mmol/L Potassium (3.5-5.1) mmol/L Chloride (98-107) mmol/L Carbon Dioxide (22-30) mmol/L Anion Gap mmol/L BUN (9-20) mg/dL Creatinine (0.66-1.25) mg/dL Est GFR (CKD-EPI)AfAm (>60 ml/min/1.73 sqM) Est GFR (CKD-EPI)NonAf (>60 ml/min/1.73 sqM) Glucose (74-99) mg/dL POC Glucose (mg/dL) 94 (70-110) mg/dL POC Glu [employer]station Operator ID Maia Zuñiga Plasma Lactic Acid Tray (0.7-2.0) mmol/L Calcium (8.4-10.2) mg/dL Total Bilirubin (0.2-1.3) mg/dL AST (17-59) U/L ALT (4-49) U/L Alkaline Phosphatase (38-126) U/L Troponin I (0.000-0.034) ng/mL Total Protein (6.3-8.2) g/dL Albumin (3.5-5.0) g/dL Urine Color Urine Appearance (Clear) Urine pH (5.0-8.0) Ur Specific [place] (1.001-1.035) Urine Protein (Negative) Urine Glucose (UA) (Negative) Urine Ketones (Negative) Urine Blood (Negative) Urine Nitrite (Negative) Urine Bilirubin (Negative) Urine Urobilinogen (<2.0) mg/dL Ur Leukocyte Esterase (Negative) Urine Opiates Screen (NotDetected) Ur Oxycodone Screen (NotDetected) Urine Methadone Screen (NotDetected) Ur Propoxyphene Screen (NotDetected) Ur Barbiturates Screen (NotDetected) U Tricyclic Antidepress (NotDetected) Ur Phencyclidine Scrn (NotDetected) Ur Amphetamines Screen (NotDetected) U Methamphetamines Scrn (NotDetected) U Benzodiazepines Scrn (NotDetected) Urine Cocaine Screen (NotDetected) U Marijuana (THC) Screen (NotDetected) 03/27/23 03/27/23 03/27/23 Range/Units 19:06 19:06 19:15 WBC (3.8-10.6) k/uL RBC (4.30-5.90) m/uL Hgb (13.0-17.5) gm/dL Hct (39.0-53.0) % MCV (80.0-100.0) fL MCH (25.0-35.0) pg MCHC (31.0-37.0) g/dL RDW (11.5-15.5) % Plt Count (150-450) k/uL MPV Neutrophils % (Manual) % Lymphocytes % (Manual) % Monocytes % (Manual) % Eosinophils % (Manual) % Neutrophils # (Manual) (1.3-7.7) k/uL Lymphocytes # (Manual) (1.0-4.8) k/uL Monocytes # (Manual) (0-1.0) k/uL Eosinophils # (Manual) (0-0.7) k/uL Nucleated RBCs (0-0) /100 WBC Manual Slide Review Hypochromasia Anisocytosis Microcytosis Ovalocytes PT (9.0-12.0) sec INR (<1.2) APTT (22.0-30.0) sec Sodium 141 (137-145) mmol/L Potassium 3.9 (3.5-5.1) mmol/L Chloride 105 (98-107) mmol/L Carbon Dioxide 29 (22-30) mmol/L Anion Gap 7 mmol/L BUN 13 (9-20) mg/dL Creatinine 0.72 (0.66-1.25) mg/dL Est GFR (CKD-EPI)AfAm >90 (>60 ml/min/1.73 sqM) Est GFR (CKD-EPI)NonAf 89 (>60 ml/min/1.73 sqM) Glucose 97 (74-99) mg/dL POC Glucose (mg/dL) (70-110) mg/dL POC Glu [employer] Substation Operator ID Plasma Lactic Acid Tray 1.3 (0.7-2.0) mmol/L Calcium 9.0 (8.4-10.2) mg/dL Total Bilirubin 1.3 (0.2-1.3) mg/dL AST 32 (17-59) U/L ALT 36 (4-49) U/L Alkaline Phosphatase 98 (38-126) U/L Troponin I 0.013 (0.000-0.034) ng/mL Total Protein 6.7 (6.3-8.2) g/dL Albumin 3.9 (3.5-5.0) g/dL Urine Color Urine Appearance (Clear) Urine pH (5.0-8.0) Ur Specific [place] (1.001-1.035) Urine Protein (Negative) Urine Glucose (UA) (Negative) Urine Ketones (Negative) Urine Blood (Negative) Urine Nitrite (Negative) Urine Bilirubin (Negative) Urine Urobilinogen (<2.0) mg/dL Ur Leukocyte Esterase (Negative) Urine Opiates Screen (NotDetected) Ur Oxycodone Screen (NotDetected) Urine Methadone Screen (NotDetected) Ur Propoxyphene Screen (NotDetected) Ur Barbiturates Screen (NotDetected) U Tricyclic Antidepress (NotDetected) Ur Phencyclidine Scrn (NotDetected) Ur Amphetamines Screen (NotDetected) U Methamphetamines Scrn (NotDetected) U Benzodiazepines Scrn (NotDetected) Urine Cocaine Screen (NotDetected) U Marijuana (THC) Screen (NotDetected) 03/27/23 Range/Units 20:56 WBC (3.8-10.6) k/uL RBC (4.30-5.90) m/uL Hgb (13.0-17.5) gm/dL Hct (39.0-53.0) % MCV (80.0-100.0) fL MCH (25.0-35.0) pg MCHC (31.0-37.0) g/dL RDW (11.5-15.5) % Plt Count (150-450) k/uL MPV Neutrophils % (Manual) % Lymphocytes % (Manual) % Monocytes % (Manual) % Eosinophils % (Manual) % Neutrophils # (Manual) (1.3-7.7) k/uL Lymphocytes # (Manual) (1.0-4.8) k/uL Monocytes # (Manual) (0-1.0) k/uL Eosinophils # (Manual) (0-0.7) k/uL Nucleated RBCs (0-0) /100 WBC Manual Slide Review Hypochromasia Anisocytosis Microcytosis Ovalocytes PT (9.0-12.0) sec INR (<1.2) APTT (22.0-30.0) sec Sodium (137-145) mmol/L Potassium (3.5-5.1) mmol/L Chloride (98-107) mmol/L Carbon Dioxide (22-30) mmol/L Anion Gap mmol/L BUN (9-20) mg/dL Creatinine (0.66-1.25) mg/dL Est GFR (CKD-EPI)AfAm (>60 ml/min/1.73 sqM) Est GFR (CKD-EPI)NonAf (>60 ml/min/1.73 sqM) Glucose (74-99) mg/dL POC Glucose (mg/dL) (70-110) mg/dL POC Glu [employer] Substation Operator ID Plasma Lactic Acid Tary (0.7-2.0) mmol/L Calcium (8.4-10.2) mg/dL Total Bilirubin (0.2-1.3) mg/dL AST (17-59) U/L ALT (4-49) U/L Alkaline Phosphatase (38-126) U/L Troponin I (0.000-0.034) ng/mL Total Protein (6.3-8.2) g/dL Albumin (3.5-5.0) g/dL Urine Color Yellow Urine Appearance Clear (Clear) Urine pH 7.0 (5.0-8.0) Ur Specific [place] 1.028 (1.001-1.035) Urine Protein Trace H (Negative) Urine Glucose (UA) Negative (Negative) Urine Ketones Negative (Negative) Urine Blood Negative (Negative) Urine Nitrite Negative (Negative) Urine Bilirubin Negative (Negative) Urine Urobilinogen <2.0 (<2.0) mg/dL Ur Leukocyte Esterase Negative (Negative) Urine Opiates Screen Not Detected (NotDetected) Ur Oxycodone Screen Not Detected (NotDetected) Urine Methadone Screen Not Detected (NotDetected) Ur Propoxyphene Screen Not Detected (NotDetected) Ur Barbiturates Screen Not Detected (NotDetected) U Tricyclic Antidepress Not Detected (NotDetected) Ur Phencyclidine Scrn Not Detected (NotDetected) Ur Amphetamines Screen Not Detected (NotDetected) U Methamphetamines Scrn Not Detected (NotDetected) U Benzodiazepines Scrn Not Detected (NotDetected) Urine Cocaine Screen Not Detected (NotDetected) U Marijuana (THC) Screen Not Detected (NotDetected) - Radiology Data Radiology results: report reviewed, image reviewed Disposition Clinical Impression: Altered mental status Disposition: ADMITTED IP TO THIS HOSP
[2023-03-27 20:33] LABS: Eosinophils # (M) 0.17 k/uL (0-0.7); Lymphocytes # (M) 5.29 k/uL (1.0-4.8); Monocytes # (M) 0.25 k/uL (0-1.0); Neutrophils # (M) 2.69 k/uL (1.3-7.7); Neutrophils % (M) 32 %; Nucleated Red Blood Cells 0 /100 WBC (0-0); Total Cells Counted 100
[2023-03-27 20:34] LABS: Ovalocytes Present
--- NOTE | 2023-03-27 21:08 | CT ---
EXAMINATION TYPE: CT angio head neck CT DLP: 820.8 mGycm, Automated exposure control for dose reduction was used. DATE OF EXAM: 03/27/2023 8:49 PM COMPARISON: CT brain 03/27/2023. CLINICAL INDICATION:Male, 78 years old with history of Altered mental status; TECHNIQUE: Axially acquired helical CT angiogram of the head and neck was obtained with contrast. Axi al images are supplemented with 3D reconstructions which [facility] NASCET criteria used. Contrast used:65 ml mL of Isovue 370 with IV Contrast, Oral contrast used: None. FINDINGS: CTA HEAD: No evidence of acute intracranial hemorrhage, mass effect, or midline shift. The ventricles, sulci, a nd cisterns are unremarkable. The visualized portions of the internal carotid arteries, middle cerebral arteries, anterior cerebral arteries, and posterior cerebral arteries are patent. The basilar and vertebral arteries are patent. Mild intracranial vertebral artery atherosclerosis. CTA NECK: Right Carotid System: The common carotid and external carotid arteries are patent. There is approximately 25% stenosis at t he carotid bifurcation secondary to calcified/noncalcified plaquing. The rest of the internal carotid artery is patent. Left Carotid System: The common carotid and external carotid arteries are patent. There is approximately 25% stenosis at t he carotid bifurcation secondary to calcified/noncalcified plaquing. The rest of the internal carotid artery is patent. Vertebral arteries are patent without evidence hemodynamically significant stenosis. There is a three-vessel aortic arch. The origins of the great vessels are patent. No evidence of hemo dynamically significant stenosis. Upper thorax: Cardiac conduction leads in the heart. There is enlarged lymph nodes within the right s upraclavicular/right axillary region measuring up to 20 mm and on the left measuring up to 12 mm. Med iastinal lymphadenopathy measuring up to 16 mm in the right low paratracheal region. IMPRESSION: 1. 50-75% stenosis of the left carotid bifurcation and 25% stenosis of the right carotid bifurcation secondary to calcified plaque. 2. No evidence for occlusion. The vertebral arteries are patent. 3. Multiple enlarged lymph nodes in the right upper chest/right axilla and mediastinum findings are concerning for malignancy, clinical correlation and further workup recommended.
[2023-03-27 21:22] LABS: Appearance,Urine Clear (Clear); Bilirubin,Urine Negative (Negative); Blood,Urine Negative (Negative); Color,Urine Yellow; Glucose,Urine (UA) Negative (Negative); Ketones,Urine Negative (Negative); Leukocyte Esterase,Urine Negative (Negative); Nitrite,Urine Negative (Negative); Protein,Urine Trace (Negative); Specific Gravity,Urine 1.028 (1.001-1.035); Urobilinogen,Urine <2.0 mg/dL (<2.0)
[2023-03-27 21:31] LABS: Amphetamine Screen,Urine Not Detected (NotDetected); Barbiturate Screen,Urine Not Detected (NotDetected); Benzodiazepines Screen,Urine Not Detected (NotDetected); Cocaine Screen,Urine Not Detected (NotDetected); Methadone Screen, Urine Not Detected (NotDetected); Opiate Screen,Urine Not Detected (NotDetected); Oxycodone Screen, Urine Not Detected (NotDetected); Phencyclidine Screen,Urine Not Detected (NotDetected); Tricyclic Antidepressant,Urine Not Detected (NotDetected); Urn Cannabinoid Scrn Not Detected (NotDetected)
[2023-03-27] MEDS ORDERED: HYDROcodone/APAP 5-325MG 1 EACH TAB PO PRN (21:53)
[2023-03-27] MEDS ORDERED: NALOXONE 0.4 MG/ML 1 ML VIAL IV PRN (21:53)
[2023-03-27] MEDS ORDERED: ACETAMINOPHEN TAB 325 MG TAB PO PRN (21:53)
[2023-03-27] MEDS ORDERED: ONDANSETRON 4 MG/2 ML VIAL IVP PRN (21:53)
[2023-03-27] MEDS ORDERED: LABETALOL 5 MG/ML VIAL MDV IVP STA (22:26)
[2023-03-27] MEDS: CITALOPRAM HYDROBROMIDE 20 MG TAB PO SCH (22:58)
--- NOTE | 2023-03-28 04:03 | P.HPIM ---
History of Present Illness H&P Date: 03/27/23 Chief Complaint: AMS 78 year old male with hypertension , MORRIS, skin cancer patient started taking his colon prep for Cscope next day. and around 4 pm when he started he was doing well, however, suddenly became confused 1 hour later, not knowing whats going on at all. no seizure like activity , no falls, no chest pain , no trouble breathing , no fever, no chills no bleeding , no URI patient does not recall any of that, and only knows that his put him in the care and brought him for evaluation , he is feeling fine now and denies any concerns patient has been holding his xarelto for at least 3 days now in preparation for Cscope denies illicit drugs , alcohol or smoking review of systems Pertinent positives as noted in HPI. All other systems were reviewed and are negative PMHx hyeprtension , MORRIS on cpap , GERD , skin cancer, HLD on exam Constitutional: No acute distress, conversant, pleasant Eyes: Anicteric sclerae, moist conjunctiva, Pupils equal round reactive to light ENMT: NC/AT Oropharynx clear, no erythema, or exudates Neck: Supple, no masses, or JVD No carotid bruits No thyromegaly Lungs: Clear to auscultation Clear to percussion Normal respiratory effort, no accessory muscle use Cardiovascular: Heart regular in rate and rhythm, No murmurs, gallops, or rubs No peripheral edema Abdominal: Soft Nontender, no guarding, rebound or rigidity Abdomen moving with respiration Normoactive bowel sounds No hepatomegaly, No splenomegaly No palpable mass No abdominal wall hernia noted Skin: Normal temperature, tone, texture, turgor No induration No subcutaneous nodules No rash, lesions No ulcers Extremities: No digital cyanosis No clubbing Pedal pulses intact and symmetrical Radial pulses intact and symmetrical No calf tenderness Psychiatric: Alert and oriented to person, place and time Appropriate affect fair judgement Neuro Muscles Strength 5/5 in all 4 extremities Sensation to light touch grossly present throughout Cranial nerves II-XII grossly intact Lymphatics: no palpable cervical or supraclavicular lymph nodes 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, see Dr Castellano H&P, has 24 hr heart monitor on, hiatel hernia History of Any Multi-Drug Resistant Organisms: None Reported Past Surgical History: Cardiac Valve Replacement, Cholecystectomy, Hernia Rep air, Joint Replacement, Tonsillectomy Additional Past Surgical History / Comment(s): AORTIC VALVE REPLACEMENT 2011, COLONOSCOPY,SKIN GRAFT ON HEAD, LYMPH NODE FROM LT ARM REMOVED, rt knee replacement, umbilical hernia repair, pacemaker 07/02/2019 Past Anesthesia/Blood Transfusion Reactions: No Reported Reaction Additional Past Anesthesia/Blood Transfusion Reaction / Comment(s): no blood transfusion Past Psychological History: Depression Smoking Status: Former smoker Past Alcohol Use History: None Reported Additional Past Alcohol Use History / Comment(s): QUIT SMOKING 11/30/1979, smoked for 16 yrs, 3 PPD Past Drug Use History: None Reported - Past Family History Mother Family Medical History: Cancer Additional Family Medical History / Comment(s): melanoma Sister(s) Family Medical History: Cancer Additional Family Medical History / Comment(s): breast Father Additional Family Medical History / Comment(s): heart valve replacement, skin ca Medications and Allergies Home Medications Medication Instructions Recorded Confirmed Type Atorvastatin [Lipitor] 40 mg PO HS 04/01/19 03/27/23 History Citalopram Hydrobromide [CeleXA] 20 mg PO HS 04/01/19 03/27/23 History Doxazosin Mesylate 8 mg PO BID 04/01/19 03/27/23 History Finasteride [Proscar] 5 mg PO DAILY 04/01/19 03/27/23 History Furosemide [Lasix] 20 mg PO Q48H 04/01/19 03/27/23 History Spironolactone 50 mg PO Q2D 04/01/19 03/27/23 History Metoprolol Succinate [Toprol XL] 100 mg PO DAILY #90 tab 07/03/19 03/27/23 Rx Pantoprazole [Protonix] 40 mg PO DAILY 03/22/23 03/27/23 History Rivaroxaban [Xarelto] 20 mg PO HS 03/22/23 03/27/23 History Clenpiq 1 dose PO DIRECTED 03/27/23 03/27/23 History Ferrous Sulfate [Feosol] 325 mg PO DAILY 03/27/23 03/27/23 History Isosorbide Mononitrate ER [Imdur] 30 mg PO DAILY 03/27/23 03/27/23 History Allergies Allergy/AdvReac Type Severity Reaction Status Date / Time amoxicillin Allergy Rash/Hives Verified 03/27/23 22:22 cephalexin Allergy Rash/Hives Verified 03/27/23 22:22 erythromycin base Allergy Rash/Hives Verified 03/27/23 22:22 Physical Exam Vitals: Vital Signs Temp Pulse Pulse Resp BP BP Pulse Ox 03/28/23 01:53 97.9 F 68 15 160/74 97 03/27/23 23:45 97.8 F 73 16 151/53 95 03/27/23 23:34 98.2 F 69 16 147/75 95 03/27/23 23:00 74 14 192/100 94 L 03/27/23 22:31 80 19 192/100 93 L 03/27/23 21:00 76 23 168/89 95 03/27/23 20:00 71 13 169/87 95 03/27/23 19:30 153/104 03/27/23 18:43 98.5 F 74 20 197/91 95 Intake and Output 03/27/23 03/27/23 03/28/23 14:59 22:59 06:59 Other: Weight 115.666 kg 115.666 kg Results CBC & Chem 7: 03/27/23 19:06 03/27/23 19:06 Labs: Abnormal Lab Results - Last 24 Hours (Table) 03/27/23 03/27/23 Range/Units 19:06 20:56 RDW 22.7 H (11.5-15.5) % Plt Count 103 L (150-450) k/uL Lymphocytes # (Manual) 5.29 H (1.0-4.8) k/uL Urine Protein Trace H (Negative) Thrombosis Risk Factor Assmnt - Choose All That Apply Each Factor Represents 1 point: Minor surgery planned, Obesity (BMI >25) Other Risk Factors: No Other congenital or acquired thrombophilia - If yes, enter type in comment: No Thrombosis Risk Factor Assessment Total Risk Factor Score: 2 Thrombosis Risk Factor Assessment Level: Low Risk Assessment and Plan Assessment: 78 year old male coming in for sudden confusion , I discussed the case with ED doc , and I accepted the admission for neuro check and evaluation with anticipated length of stay < 2 midngihts acute encephalopathy , resolved CT brain no acute pathology CTA head and neck showing L carotid bifurcation with 50-75% stenosis and right carotid bifurcation 25% stenosis he is back to his baseline blood work unremarkable Na 141, K 3.9, Cr 0.72 BUN 13 Hgb 14, WBC 8.4 continue with neuro checks fall precautions EKG paced rhythm , PVCs monitor vital signs gentle IVF hydration with normal saline 75 cc per hour hypertensive urgency upon presentation improving now s/p labetalol IVP in the ED continue home meds CT showd incidental findings of multiple enlarged LN in the right upper chest , axilla, and mediastinum , concerning for malignancy patient denies weight loss or bleeding or hemoptysis consider OP follow up chronic conditions hyperlipidemia MORRIS h/o skin cancer continue home meds full code DVT PPX mechanical
[2023-03-28] MEDS: PANTOPRAZOLE 40 MG TABLET PO SCH (06:26)
[2023-03-28] MEDS: METOPROLOL SUCCINATE (ER) 100 MG TAB.ER.24H PO SCH (08:11)
[2023-03-28] MEDS: DOXAZOSIN 4 MG TAB PO SCH ×2 (08:11→22:13)
[2023-03-28] MEDS: ISOSORBIDE MONONITRATE ER 30 MG TAB.ER.24H PO SCH (08:11)
[2023-03-28] MEDS: FERROUS SULFATE 325 MG TAB PO SCH (08:11)
[2023-03-28] MEDS: FINASTERIDE 5 MG TAB PO SCH (08:11)
[2023-03-28] MEDS: FUROSEMIDE 20 MG TAB PO SCH ×2 (08:39→12:11)
[2023-03-28] MEDS ORDERED: SPIRONOLACTONE 25 MG TAB PO SCH (09:00)
--- NOTE | 2023-03-28 13:02 | P.CNNES ---
History of Present Illness Consult date: 03/28/23 Requesting physician: Eliana Verde Reason for Consult: Altered mental status History of Present Illness: Patient is a 78-year-old left-handed male came to the hospital yesterday at 5:55 PM with mental status change. Patient states that he was slightly disoriented last night while he was waiting for supper. got him into the car and brought him to the hospital. I spoke to patient's on the phone, who prov ided with detailed history. Patient has history of atrial fibrillation, on Xarelto. This was put on hold because patient was getting colonoscopy scheduled for today. The last dose of Xarelto he received was on Sunday03/25/2023 around 5 PM. He was getting prep for the colonoscopy. Yesterday at 4 PM he washed TV. After the movie was over, he came out at 5 PM and asking his "what are you eating". She said she was eating scrambled eggs, then he said why are you eating scrambled eggs. Patient's told him that he cannot eat scrambled eggs and he has to eat jelly because of upcoming colonoscopy. He said "I'm not having colonoscopy", although he was undergoing preparation for colonoscopy. Patient's mentioned that he was not making sense. He kept on looking at the clock, and was looking for his phone in the wallet. He was asking same questions over and over. Patient could not understand why he has to go to the hospital for these symptoms. Patient's did not notice any slurred speech, facial droop, or any loss of sensation, focal weakness. He was able to walk without any problem. Vital signs on arrival blood pressure 197/91, which improved to 153/104, pulse rate 74 temperature 98.5. Blood tests shows normal CBC with platelets 103. PT/PTT normal. CMP normal. Troponin negative. UA negative, urine drug screen negative. CT head revealed no acute intracranial process. Nonspecific white matter changes, likely secondary to chronic small vessel ischemic disease. I personally reviewed CT head, agree with the findings. Visualized paranasal sinuses are clear. External auditory canal is clear. Chest x-ray showed no acute process. EKG with uncertain irregular rhythm. Electronic ventricles are pacemaker. At present patient is back to baseline. Patient has history of smoking 3 packs per day for 15 years, quit 43 years ago. Denies diabetes although he has hypertension. Patient has history of atrial fibrillation, pacemaker placement. Also has history of aortic valve replacement in 2012. 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 Home medications include Celexa 20 mg, Lipitor 40 mg, spironolactone 50 mg every 2 days, Lasix 20 mg every 48 hours, Proscar 5 mg, doxazosin 8 mg twice a day, metoprolol, Protonix, Xarelto 20 mg at bedtime, iron and Imdur, Clenpiq Review of Systems Constitutional: Denies chills, Denies fever Eyes: denies blurred vision, denies diplopia, denies pain Ears: bilateral: decreased hearing (Uses hearing aids bilaterally), deny: tinnitus Ears, nose, mouth and throat: Denies headache, Denies sore throat Cardiovascular: Denies chest pain, Denies shortness of breath Respiratory: Denies cough, Denies excessive sputum Gastrointestinal: Denies abdominal pain, Denies constipation, Denies diarrhea, Denies nausea, Denies vomiting Musculoskeletal: Denies low back pain, Denies myalgias, Denies neck pain, Denies neck stiffness Musculoskeletal: bilateral: shoulder stiffness (Bilateral shoulder discomfort) Integumentary: Denies pruritus, Denies rash Neurological: Reports as per HPI, Denies numbness, Denies weakness Psychiatric: Denies anxiety, Denies depression Endocrine: Denies fatigue, Denies weight change Past Medical History Past Medical History: Cancer, GERD/Reflux, Hearing Disorder / Deafness, Hyp erlipidemia, Hypertension, Osteoarthritis (OA), Prostate Disorder, Sleep Apnea/CPAP/BIPAP Additional Past Medical History / Comment(s): 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, see Dr Castellano H&P, has 24 hr heart monitor on, hiatel hernia History of Any Multi-Drug Resistant Organisms: None Reported Past Surgical History: Cardiac Valve Replacement, Cholecystectomy, Hernia Repair, Joint Replacement, Tonsillectomy Additional Past Surgical History / Comment(s): AORTIC VALVE REPLACEMENT 2011, COLONOSCOPY,SKIN GRAFT ON HEAD, LYMPH NODE FROM LT ARM REMOVED, rt knee replacement, umbilical hernia repair, pacemaker 07/02/2019 Past Anesthesia/Blood Transfusion Reactions: No Reported Reaction Additional Past Anesthesia/Blood Transfusion Reaction / Comment(s): no blood transfusion Past Psychological History: Depression Smoking Status: Former smoker Past Alcohol Use History: None Reported Additional Past Alcohol Use History / Comment(s): QUIT SMOKING 11/30/1979, smoked for 16 yrs, 3 PPD Past Drug Use History: None Reported - Past Family History Mother Family Medical History: Cancer Additional Family Medical History / Comment(s): melanoma Sister(s) Family Medical History: Cancer Additional Family Medical History / Comment(s): breast Father Additional Family Medical History / Comment(s): heart valve replacement, skin ca Medications and Allergies Home Medications Medication Instructions Recorded Confirmed Type Atorvastatin [Lipitor] 40 mg PO HS 04/01/19 03/27/23 History Citalopram Hydrobromide [CeleXA] 20 mg PO HS 04/01/19 03/27/23 History Doxazosin Mesylate 8 mg PO BID 04/01/19 03/27/23 History Finasteride [Proscar] 5 mg PO DAILY 04/01/19 03/27/23 History Furosemide [Lasix] 20 mg PO Q48H 04/01/19 03/27/23 History Spironolactone 50 mg PO Q2D 04/01/19 03/27/23 History Metoprolol Succinate [Toprol XL] 100 mg PO DAILY #90 tab 07/03/19 03/27/23 Rx Pantoprazole [Protonix] 40 mg PO DAILY 03/22/23 03/27/23 History Rivaroxaban [Xarelto] 20 mg PO HS 03/22/23 03/27/23 History Clenpiq 1 dose PO DIRECTED 03/27/23 03/27/23 History Ferrous Sulfate [Feosol] 325 mg PO DAILY 03/27/23 03/27/23 History Isosorbide Mononitrate ER [Imdur] 30 mg PO DAILY 03/27/23 03/27/23 History Allergies Allergy/AdvReac Type Severity Reaction Status Date / Time amoxicillin Allergy Rash/Hives Verified 03/27/23 22:22 cephalexin Allergy Rash/Hives Verified 03/27/23 22:22 erythromycin base Allergy Rash/Hives Verified 03/27/23 22:22 Physical Examination - Vital Signs Vital Signs: Vital Signs Temp Pulse Pulse Resp BP BP Pulse Ox 03/28/23 08:10 69 03/28/23 07:50 16 03/28/23 06:38 97.6 F 59 L 15 177/91 96 03/28/23 01:53 97.9 F 68 15 160/74 97 03/27/23 23:45 97.8 F 73 16 151/53 95 03/27/23 23:34 98.2 F 69 16 147/75 95 03/27/23 23:00 74 14 192/100 94 L 03/27/23 22:31 80 19 192/100 93 L 03/27/23 21:00 76 23 168/89 95 03/27/23 20:00 71 13 169/87 95 03/27/23 19:30 153/104 03/27/23 18:43 98.5 F 74 20 197/91 95 Intake and Output 03/27/23 03/28/23 03/28/23 22:59 06:59 14:59 Other: # Voids 1 Weight 115.666 kg 115.666 kg Patient is an elderly male, very pleasant, in no acute distress. Patient is alert awake oriented to time place and person. Speech and language functions are normal. Patient can name and repeat very well. No aphasia or dysarthria. Attention, concentration and fund of knowledge is adequate. On cranial nerve examination, pupils are equal, round and reacting to light, visual carlin are full on confrontation, with no neglect on double simultaneous stimulation. Extraocular muscles are intact with no nystagmus. Patient has mild flattening of the right nasolabial fold. His tongue protrudes to the midline. Palatal elevation and sensation normal, hearing and shoulder shrug normal, facial sensation normal. On muscle strength testing, there is no pronator drift and the strength is normal in arms and legs distally and proximally. 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 Deep tendon reflexes are (right/left) biceps 2+/1+, brachioradialis 2+/1+, knees 2+/2+, ankles 0/0 and plantars downgoing bilaterally. Sensory to touch is equal with no neglect on double simultaneous stimulation. Cerebellar function showed no ataxia for [id number] testing. No dysdiadochokinesia. No ataxia for [id number] testing on either side. Tone and bulk of muscles normal. Gait deferred.. On general examination, there is no carotid bruit or murmur, S1-S2 audible. Chest is clear on consultation. Abdomen is soft nontender. No organomegaly, bowel sounds present. Peripheral pulses are present. Patient has lymphedema involving left upper limb. He has peripheral edema. Results - Laboratory Findings CBC and BMP: 03/27/23 19:06 03/27/23 19:06 Abnormal Lab Findings: Abnormal Labs 03/27/23 03/27/23 19:06 20:56 RDW 22.7 H Plt Count 103 L Lymphocytes # (Manual) 5.29 H Urine Protein Trace H Assessment and Plan Assessment: * Probable transient global amnesia. This is probably resulting from transient cerebral ischemia. Patient has atrial fibrillation, was off Xarelto for last 2 days for colonoscopy, which may have resulted in above symptoms. * Atrial fibrillation, on Xarelto * History of aortic valve replacement 2011 * Hypertension * Hyperlipidemia * Sleep apnea * History of Mclaughlin cell cancer, status post lymph node removal left upper arm * Pacemaker Plan: * Patient's neurological symptoms have resolved. His current NIH stroke scale is 0. * Resume Xarelto as soon as possible. Discussed with primary physician. Consider bridging with Lovenox until patient can receive Xarelto. * CTA of head and neck showed 50-75% stenosis of the left carotid bifurcation and 25% stenosis of the right carotid bifurcation secondary to calcified plaque. No evidence for occlusion. Vertebral arteries are patent. Multiple enlarged lymph nodes in the right upper chest/right axilla and mediastinum, findings are concerning for malignancy. Clinical correlation is recommended. * Oncology consult * Vascular surgery consultation for left ICA stenosis * Patient's requesting cardiology consultation with Dr. Beasley. * Patient apparently undergoing CHLOÉ in the morning per cardiology. * Hemoglobin A1c 5.8 on 01/29/2023 * Lipid panel with cholesterol 88, LDL 38, HDL 34 and triglycerides 72 on 01/29/2023. No need to repeat. * Neurology will follow. Thank you for the consult.
[2023-03-28] MEDS: RIVAROXABAN 20 MG TAB PO SCH ×2 (13:29→22:13)
--- NOTE | 2023-03-28 13:48 | P.CRDCN ---
History of Present Illness Consult date: 03/28/23 History of present illness: History of present illness: This is a 78-year-old male patient of Dr. Beasley with past medical history of valvular heart disease with previous aortic valve replacement, paroxysmal atrial fibrillation on Xarelto, hyperlipidemia, history of Goehner cell skin cancer. Patient and gives history that patient had cleared that he could be off Xarelto for 2 days in preparation for a colonoscopy which was scheduled 03/28. While patient was starting the prep for the colonoscopy. He had a loss of memory, repeating himself, confusion and patient was brought into [facility] for evaluation of TIA. He was found to have left carotid stenosis of 50-75%. Patient has been symptom free. EKG sinus with PACs Chest x-ray: No acute process CT angiogram revealed a 50-75% stenosis of the left carotid bifurcation 25% of the right carotid bifurcation. No evidence of occlusion. Vertebral arteries patent. Multiple enlarged lymph nodes in the right upper chest right axilla and mediastinum concerning for malignancy. CAT scan of the brain revealed no acute intracranial process. Nonspecific white matter changes. Platelet count 103, WBC 8.4, hemoglobin 14. INR 1. Electrolytes and renal function normal. Troponin negative 1. Urine drug screen negative. Urinalysis negative for infection. 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 Review Of Systems: At the time of my evaluation: Constitutional: No fever, no chills. No weakness, fatigue or lethargy. EENT: No headache. No dizziness. Lungs: No shortness of breath, cough, no sputum production. No wheezing. Cardiovascular: No chest pain, no lower extremity edema. No palpitations. No paroxysmal nocturnal dyspnea. No orthopnea. No lightheadedness or dizziness. No syncopal episodes. Abdominal: No abdominal pain. No nausea, vomiting. No diarrhea. No constipation. No bloody or tarry stools. Genitourinary: No dysuria.. No urinary retention. Musculoskeletal: No myalgias. No muscle weakness, no frequent falls. No back pain. No neck pain. Integumentary: No wounds. No rash. No unusual bruising. Neurologic: No aphasia. No facial droop. No change in mentation. No head injury. No headache. Physical examination: Gen: This is a 78-year-old male. He is resting in recliner and appears to be comfortable. VS: reviewed HEENT: Head is atraumatic, normocephalic. Pupils equal, round. Sclerae is anicteric. NECK: Supple. No JVD. . LUNGS: Clear to auscultation. No wheezes or rhonchi. No intercostal retractions. HEART: Regular rate and rhythm. 2/6 systolic ejection murmur at the base. ABDOMEN: Soft No tenderness. EXTREMITIES: No pedal edema. No calf tenderness. NEUROLOGICAL: Patient is awake, alert and oriented x3. Assessment: TIA Valvular heart disease with previous aortic valve replacement Paroxysmal atrial fibrillation Hyperlipidemia Plan: Resume patient's home cardiac medications including Xarelto Scheduled for CHLOÉ tomorrow with Dr. Beasley Further recommendations to follow based upon clinical course Thank you kindly for this consultation. Nurse practitioner note has been reviewed, I agree with documented findings and plan of care. Patient was seen and examined. 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, see Dr Castellano H&P, has 24 hr heart monitor on, hiatel hernia History of Any Multi-Drug Resistant Organisms: None Reported Past Surgical History: Cardiac Valve Replacement, Cholecystectomy, Hernia Repair, Joint Replacement, Tonsillectomy Additional Past Surgical History / Comment(s): AORTIC VALVE REPLACEMENT 2011, COLONOSCOPY,SKIN GRAFT ON HEAD, LYMPH NODE FROM LT ARM REMOVED, rt knee replacement, umbilical hernia repair, pacemaker 07/02/2019 Past Anesthesia/Blood Transfusion Reactions: No Reported Reaction Additional Past Anesthesia/Blood Transfusion Reaction / Comment(s): no blood transfusion Past Psychological History: Depression Smoking Status: Former smoker Past Alcohol Use History: None Reported Additional Past Alcohol Use History / Comment(s): QUIT SMOKING 11/30/1979, smoked for 16 yrs, 3 PPD Past Drug Use History: None Reported - Past Family History Mother Family Medical History: Cancer Additional Family Medical History / Comment(s): melanoma Sister(s) Family Medical History: Cancer Additional Family Medical History / Comment(s): breast Father Additional Family Medical History / Comment(s): heart valve replacement, skin ca Medications and Allergies Home Medications Medication Instructions Recorded Confirmed Type Atorvastatin [Lipitor] 40 mg PO HS 04/01/19 03/27/23 History Citalopram Hydrobromide [CeleXA] 20 mg PO HS 04/01/19 03/27/23 History Doxazosin Mesylate 8 mg PO BID 04/01/19 03/27/23 History Finasteride [Proscar] 5 mg PO DAILY 04/01/19 03/27/23 History Furosemide [Lasix] 20 mg PO Q48H 04/01/19 03/27/23 History Spironolactone 50 mg PO Q2D 04/01/19 03/27/23 History Metoprolol Succinate [Toprol XL] 100 mg PO DAILY #90 tab 07/03/19 03/27/23 Rx Pantoprazole [Protonix] 40 mg PO DAILY 03/22/23 03/27/23 History Rivaroxaban [Xarelto] 20 mg PO HS 03/22/23 03/27/23 History Clenpiq 1 dose PO DIRECTED 03/27/23 03/27/23 History Ferrous Sulfate [Feosol] 325 mg PO DAILY 03/27/23 03/27/23 History Isosorbide Mononitrate ER [Imdur] 30 mg PO DAILY 03/27/23 03/27/23 History Allergies Allergy/AdvReac Type Severity Reaction Status Date / Time amoxicillin Allergy Rash/Hives Verified 03/27/23 22:22 cephalexin Allergy Rash/Hives Verified 03/27/23 22:22 erythromycin base Allergy Rash/Hives Verified 03/27/23 22:22 Physical Exam Vitals: Vital Signs Temp Pulse Pulse Resp BP BP Pulse Ox 03/28/23 10:11 96 03/28/23 08:10 69 03/28/23 07:50 16 03/28/23 06:38 97.6 F 59 L 15 177/91 96 03/28/23 01:53 97.9 F 68 15 160/74 97 03/27/23 23:45 97.8 F 73 16 151/53 95 03/27/23 23:34 98.2 F 69 16 147/75 95 03/27/23 23:00 74 14 192/100 94 L 03/27/23 22:31 80 19 192/100 93 L 03/27/23 21:00 76 23 168/89 95 03/27/23 20:00 71 13 169/87 95 03/27/23 19:30 153/104 03/27/23 18:43 98.5 F 74 20 197/91 95 FiO2 03/28/23 10:11 21 03/28/23 08:10 03/28/23 07:50 03/28/23 06:38 03/28/23 01:53 03/27/23 23:45 03/27/23 23:34 03/27/23 23:00 03/27/23 22:31 03/27/23 21:00 03/27/23 20:00 03/27/23 19:30 03/27/23 18:43 Intake and Output 03/27/23 03/28/23 03/28/23 22:59 06:59 14:59 Other: # Voids 1 Weight 115.666 kg 115.666 kg Results 03/27/23 19:06 03/27/23 19:06 Cardiac Enzymes 03/27/23 03/27/23 Range/Units 19:06 19:06 AST 32 (17-59) U/L Troponin I 0.013 (0.000-0.034) ng/mL Coagulation 03/27/23 Range/Units 19:06 PT 10.7 (9.0-12.0) sec APTT 23.2 (22.0-30.0) sec CBC 03/27/23 Range/Units 19:06 WBC 8.4 (3.8-10.6) k/uL RBC 5.35 (4.30-5.90) m/uL Hgb 14.0 D (13.0-17.5) gm/dL Hct 43.3 (39.0-53.0) % Plt Count 103 L (150-450) k/uL Comprehensive Metabolic Panel 03/27/23 Range/Units 19:06 Sodium 141 (137-145) mmol/L Potassium 3.9 (3.5-5.1) mmol/L Chloride 105 (98-107) mmol/L Carbon Dioxide 29 (22-30) mmol/L BUN 13 (9-20) mg/dL Creatinine 0.72 (0.66-1.25) mg/dL Glucose 97 (74-99) mg/dL Calcium 9.0 (8.4-10.2) mg/dL AST 32 (17-59) U/L ALT 36 (4-49) U/L Alkaline Phosphatase 98 (38-126) U/L Total Protein 6.7 (6.3-8.2) g/dL Albumin 3.9 (3.5-5.0) g/dL Current Medications Generic Name Dose Route Start Last Admin Trade Name Freq PRN Reason Stop Dose Admin Acetaminophen 650 mg 03/27/23 21:53 Acetaminophen Tab 325 Mg Tab PO Q6HR PRN Mild Pain or Fever > 100.5 Hydrocodone Bitart/Acetaminophen 1 each 03/27/23 21:53 Hydrocodone/Apap 5-325mg 1 Each Tab PO Q4HR PRN Moderate Pain (Scale 4 to 6) Atorvastatin Calcium 40 mg 03/28/23 21:00 Atorvastatin 40 Mg Tab PO HS YOEL Citalopram Hydrobromide 20 mg 03/27/23 22:30 03/27/23 22:58 Citalopram Hydrobromide 20 Mg Tab PO 20 mg HS YOEL Administration Doxazosin Mesylate 8 mg 03/28/23 09:00 03/28/23 08:11 Doxazosin 4 Mg Tab PO 8 mg BID YOEL Administration Ferrous Sulfate 325 mg 03/28/23 09:00 03/28/23 08:11 Ferrous Sulfate 325 Mg Tab PO 325 mg DAILY YOEL Administration Finasteride 5 mg 03/28/23 09:00 03/28/23 08:11 Finasteride 5 Mg Tab PO 5 mg DAILY YOEL Administration Furosemide 20 mg 03/28/23 09:00 03/28/23 08:39 Furosemide 20 Mg Tab PO Not Given Q48H YOEL Isosorbide Mononitrate 30 mg 03/28/23 09:00 03/28/23 08:11 Isosorbide Mononitrate Er 30 Mg Tab.Er.24h PO 30 mg DAILY YOEL Administration Metoprolol Succinate 100 mg 03/28/23 09:00 03/28/23 08:11 Metoprolol Succinate (Er) 100 Mg Tab.Er.24h PO 100 mg DAILY YOEL Administration Naloxone HCl 0.2 mg 03/27/23 21:53 Naloxone 0.4 Mg/Ml 1 Ml Vial IV Q2M PRN Opioid Reversal Ondansetron HCl 4 mg 03/27/23 21:53 Ondansetron 4 Mg/2 Ml Vial IVP Q8HR PRN Nausea And Vomiting Pantoprazole Sodium 40 mg 03/28/23 07:30 03/28/23 06:26 Pantoprazole 40 Mg Tablet PO 40 mg [id number] YOEL Administration Spironolactone 50 mg 03/28/23 09:00 03/28/23 08:11 Spironolactone 25 Mg Tab PO 50 mg Q2D YOEL Administration Intake and Output 03/27/23 03/28/23 03/28/23 22:59 06:59 14:59 Other: # Voids 1 Weight 115.666 kg 115.666 kg 03/27/23 19:06 03/27/23 19:06
--- NOTE | 2023-03-28 15:29 | P.PN ---
Subjective Progress Note Date: 03/28/23 Hospital Course: 78-year-old male with history of paroxysmal atrial fibrillation on Xarelto, aortic valve replacement, Miguel Ángel cell carcinoma, dyslipidemia presenting with acute encephalopathy. Mental status is now back at baseline. Neurology consulted. Cardiology also consulted. Patient recently had a planned colonoscopy for history of iron deficiency anemia and GI bleeding. Xarelto was held. However, patient had appears of confusion at home prior to his colonoscopy. He was subsequently admitted to the hospital. Subjective: Patient seen and examined at bedside. No acute events overnight. Mental status has improved. Pertinent positives and negatives as discussed above, a complete review of systems was performed and all other systems are negative. Vitals Signs Reviewed. General: nontoxic, no distress, appears at stated age Derm: warm, dry Head: atraumatic, normocephalic, symmetric Eyes: EOMI, no lid lag, anicteric sclera Mouth: no lip lesion, mucus membranes moist Cardiovascular: S1S2 reg, no murmur Lungs: CTA bilateral, no rhonchi, no rales , no accessory muscle use Abdominal: soft, nontender to palpation, no guarding, no appreciable organomegaly Ext: no gross muscle atrophy, no edema, no contractures Neuro: CN II-XI grossly intact, no focal neuro deficits Psych: Alert, oriented, appropriate affect Data Reviewed Today: Pertinent Labs: No new labs. Imaging: No new imaging Assessment and Plan: Active: Acute encephalopathy, resolved Suspected TIA Left carotid bifurcation 50-75% stenosis Paroxysmal atrial fibrillation Multiple enlarged lymph nodes noted on CT History of Miguel Ángel cell carcinoma -Patient restarted on Xarelto -Maintain permissive hypertension for 24-48 hours -neurochecks, telemetry -Neurology note reviewed, vascular surgery and cardiology consulted -Cardiology note reviewed, pending CHLOÉ tomorrow -Oncology also consulted Chronic: History of aortic valve replacement BiV Pacemaker Dyslipidemia MORRIS DVT ppx: Xarelto Code status: Full code Anticipated discharge place: home Anticipated discharge time: 1-2 days Objective - Vital Signs Vital signs: Vital Signs Temp 97.6 F 03/28/23 06:38 Pulse 69 03/28/23 08:10 Resp 16 03/28/23 07:50 BP 177/91 03/28/23 06:38 Pulse Ox 96 03/28/23 10:11 FiO2 21 03/28/23 10:11 Intake & Output 03/27/23 03/28/23 03/28/23 18:59 06:59 18:59 Weight 115.666 kg 115.666 kg Other: # Voids 1 - Labs CBC & Chem 7: 03/27/23 19:06 03/27/23 19:06 Labs: Abnormal Lab Results - Last 24 Hours (Table) 03/27/23 03/27/23 Range/Units 19:06 20:56 RDW 22.7 H (11.5-15.5) % Plt Count 103 L (150-450) k/uL Lymphocytes # (Manual) 5.29 H (1.0-4.8) k/uL Urine Protein Trace H (Negative)
--- NOTE | 2023-03-28 19:03 | P.GSCN ---
History of Present Illness Consult date: 03/28/23 History of present illness: Patient is a 78-year-old male who came into the hospital last evening with concerns of mental status changes. He was undergoing prep for a colonoscopy. History of A. fib and is on Xarelto. He had been holding this for 2 days prior to. He had taken his prep and subsequently began asking questions that were nonsensical and did not correlate with the previously known well time where he was doing his prep an understanding that he was having a colonoscopy. His states he was just not acting himself. There is no evidence of weakness and slurred speech, facial droop or any loss of sensation. He is able to ambulate without concern. He was brought to the hospital and initially blood pressures were found to be significantly elevated 197/91 which then improved. At this time the patient states he feels fine. He is alert and oriented and understands the conversations regarding what happened but does not remember anything pertaining to it at that time. The states that at the time his blood sugars appeared normal at 90s. 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, see Dr Castellano H&P, has 24 hr heart monitor on, hiatel hernia History of Any Multi-Drug Resistant Organisms: None Reported Past Surgical History: Cardiac Valve Replacement, Cholecystectomy, Hernia Repair, Joint Replacement, Tonsillectomy Additional Past Surgical History / Comment(s): AORTIC VALVE REPLACEMENT 2011, COLONOSCOPY,SKIN GRAFT ON HEAD, LYMPH NODE FROM LT ARM REMOVED, rt knee replacement, umbilical hernia repair, pacemaker 07/02/2019 Past Anesthesia/Blood Transfusion Reactions: No Reported Reaction Additional Past Anesthesia/Blood Transfusion Reaction / Comm: no blood transfusion Past Psychological History: Depression Smoking Status: Former smoker Past Alcohol Use History: None Reported Additional Past Alcohol Use History / Comment(s): QUIT SMOKING 11/30/1979, smoked for 16 yrs, 3 PPD Past Drug Use History: None Reported - Past Family History Mother Family Medical History: Cancer Additional Family Medical History / Comment(s): melanoma Sister(s) Family Medical History: Cancer Additional Family Medical History / Comment(s): breast Father Additional Family Medical History / Comment(s): heart valve replacement, skin ca Medications and Allergies Home Medications Medication Instructions Recorded Confirmed Type Atorvastatin [Lipitor] 40 mg PO HS 04/01/19 03/27/23 History Citalopram Hydrobromide [CeleXA] 20 mg PO HS 04/01/19 03/27/23 History Doxazosin Mesylate 8 mg PO BID 04/01/19 03/27/23 History Finasteride [Proscar] 5 mg PO DAILY 04/01/19 03/27/23 History Furosemide [Lasix] 20 mg PO Q48H 04/01/19 03/27/23 History Spironolactone 50 mg PO Q2D 04/01/19 03/27/23 History Metoprolol Succinate [Toprol XL] 100 mg PO DAILY #90 tab 07/03/19 03/27/23 Rx Pantoprazole [Protonix] 40 mg PO DAILY 03/22/23 03/27/23 History Rivaroxaban [Xarelto] 20 mg PO HS 03/22/23 03/27/23 History Clenpiq 1 dose PO DIRECTED 03/27/23 03/27/23 History Ferrous Sulfate [Feosol] 325 mg PO DAILY 03/27/23 03/27/23 History Isosorbide Mononitrate ER [Imdur] 30 mg PO DAILY 03/27/23 03/27/23 History Allergies Allergy/AdvReac Type Severity Reaction Status Date / Time amoxicillin Allergy Rash/Hives Verified 03/27/23 22:22 cephalexin Allergy Rash/Hives Verified 03/27/23 22:22 erythromycin base Allergy Rash/Hives Verified 03/27/23 22:22 Surgical - Exam Vital Signs Temp Pulse Resp BP Pulse Ox 98.5 F 74 20 197/91 95 03/27/23 18:43 03/27/23 18:43 03/27/23 18:43 03/27/23 18:43 03/27/23 18:43 Pleasant cooperative male in no acute distress. HEENT is normal site, atraumatic, excellent motion intact. Heart irregular. Lungs are clear. Abdo men soft, nontender nondistended. No unilateral weakness. Normal mood and affect. Results Computed tomography scan was personally reviewed. Would agree there is 50-70% stenosis of the left internal carotid artery, less than 25% on the right. - Labs 03/27/23 19:06 03/27/23 19:06 Abnormal Lab Results - Last 24 Hours (Table) 03/27/23 03/27/23 Range/Units 19:06 20:56 RDW 22.7 H (11.5-15.5) % Plt Count 103 L (150-450) k/uL Lymphocytes # (Manual) 5.29 H (1.0-4.8) k/uL Urine Protein Trace H (Negative) Diabetes panel 03/27/23 Range/Units 19:06 Sodium 141 (137-145) mmol/L Potassium 3.9 (3.5-5.1) mmol/L Chloride 105 (98-107) mmol/L Carbon Dioxide 29 (22-30) mmol/L BUN 13 (9-20) mg/dL Creatinine 0.72 (0.66-1.25) mg/dL Glucose 97 (74-99) mg/dL Calcium 9.0 (8.4-10.2) mg/dL AST 32 (17-59) U/L ALT 36 (4-49) U/L Alkaline Phosphatase 98 (38-126) U/L Total Protein 6.7 (6.3-8.2) g/dL Albumin 3.9 (3.5-5.0) g/dL Calcium panel 03/27/23 Range/Units 19:06 Calcium 9.0 (8.4-10.2) mg/dL Albumin 3.9 (3.5-5.0) g/dL Pituitary panel 03/27/23 Range/Units 19:06 Sodium 141 (137-145) mmol/L Potassium 3.9 (3.5-5.1) mmol/L Chloride 105 (98-107) mmol/L Carbon Dioxide 29 (22-30) mmol/L BUN 13 (9-20) mg/dL Creatinine 0.72 (0.66-1.25) mg/dL Glucose 97 (74-99) mg/dL Calcium 9.0 (8.4-10.2) mg/dL Adrenal panel 03/27/23 Range/Units 19:06 Sodium 141 (137-145) mmol/L Potassium 3.9 (3.5-5.1) mmol/L Chloride 105 (98-107) mmol/L Carbon Dioxide 29 (22-30) mmol/L BUN 13 (9-20) mg/dL Creatinine 0.72 (0.66-1.25) mg/dL Glucose 97 (74-99) mg/dL Calcium 9.0 (8.4-10.2) mg/dL Total Bilirubin 1.3 (0.2-1.3) mg/dL AST 32 (17-59) U/L ALT 36 (4-49) U/L Alkaline Phosphatase 98 (38-126) U/L Total Protein 6.7 (6.3-8.2) g/dL Albumin 3.9 (3.5-5.0) g/dL Assessment and Plan Assessment: Asymptomatic left internal carotid artery stenosis Altered mental status, transient Prepping for colonoscopy Plan: After personally reviewing the images and the story clinically, does not sound to me like the patient has had a TIA, it does not seem as the carotid itself is symptomatic at this point. He was significant hypertensive at the time of the time of his neurologic symptoms. Will continued outpatient surveillance. Follow-up for her carotid Dopplers in the office. Discussed that we would fix if it becomes greater than 80% stenosis or if there is greater than 50% with symptoms. If there is concern for ischemic changes, would consider MRI
[2023-03-28] MEDS ORDERED: ATORVASTATIN 40 MG TAB PO SCH (21:00)
[2023-03-28] MEDS: CITALOPRAM HYDROBROMIDE 20 MG TAB PO SCH (22:13)
[2023-03-29 01:56] VITALS: TEMP 97.9
[2023-03-29] MEDS: PANTOPRAZOLE 40 MG TABLET PO SCH (07:04)
[2023-03-29] MEDS ORDERED: fentaNYL (PF) 50 MCG/ML 2 ML AMP ONE (08:11)
[2023-03-29 08:30] VITALS: RESP 18
[2023-03-29] MEDS: BENZOCAINE SPRAY 1 CAN TOPICAL ONE ×2 (08:30→08:33)
[2023-03-29] MEDS ORDERED: fentaNYL (PF) 50 MCG/ML 2 ML AMP IVP ONE (08:33)
[2023-03-29] MEDS ORDERED: MIDAZOLAM 2 MG/2 ML VIAL IVP ONE (08:33)
[2023-03-29] MEDS ORDERED: SODIUM CHLORIDE 0.9% 500 ML 500 ML IV ONE (08:43)
--- NOTE | 2023-03-29 08:57 | P.PCN ---
Date of Procedure: 03/29/23 Description of Procedure: Indication: Evaluation of left atrial appendage Procedure Description: After explaining the procedure to the patient, it's risk and complications, blood pressure, heart rate and O2 saturation were monitored. The throat was sprayed with Cetacaine. Patient received 2 mg intravenous Versed, 50 mcg intravenous fentanyl. The probe was introduced into the esophagus without difficulty. Images were obtained. Following that, the probe was removed. There was no immediate complication. Findings: Left atrial size is dilated, left atrial appendage is normal. The ventricle size and systolic function are normal. Moderate mitral anulus calcification was noted. A bioprosthetic aortic valve was noted with mild calcification and preserved opening. Tricuspid valve appears to be normal. Ascending thoracic aorta revealed mild atherosclerotic changes. No pericardial effusion was noted. Contrast bubble study revealed no shunting across the intra-atrial septum Doppler: Pulse wave and color Doppler were obtained, and revealed moderate mitral with mild tricuspid regurgitation. There was evidence of [id number] shunting through PFO. Conclusion: 1. Dilated left atrium with normal appearance of the left atrial appendage 2. Normal in size and systolic function 3. Mitral annulus calcification with moderate mitral regurgitation 4. And mild tricuspid regurgitation 5. Bioprosthetic aortic valve with normal appearance 6. PFO with left to right shunting and no reversal with contrast bubble study 7. Mild atherosclerotic changes of the descending thoracic aorta
[2023-03-29] MEDS ORDERED: SODIUM CHLORIDE 0.9% 1,000 ML IV SCH (09:00)
[2023-03-29] MEDS: FERROUS SULFATE 325 MG TAB PO SCH (09:37)
[2023-03-29] MEDS: FINASTERIDE 5 MG TAB PO SCH (09:37)
[2023-03-29] MEDS: ISOSORBIDE MONONITRATE ER 30 MG TAB.ER.24H PO SCH (09:37)
[2023-03-29] MEDS: DOXAZOSIN 4 MG TAB PO SCH (09:37)
[2023-03-29] MEDS: METOPROLOL SUCCINATE (ER) 100 MG TAB.ER.24H PO SCH (09:38)
--- NOTE | 2023-03-29 11:11 | P.PN ---
Subjective Progress Note Date: 03/29/23 History of present illness: This is a 78-year-old male patient of Dr. Beasley with past medical history of valvular heart disease with previous aortic valve replacement, paroxysmal atrial fibrillation on Xarelto, hyperlipidemia, history of Holcomb cell skin cancer. Patient and gives history that patient had cleared that he could be off Xarelto for 2 days in preparation for a colonoscopy which was scheduled 03/28. While patient was starting the prep for the colonoscopy. He had a loss of memory, repeating himself, confusion and patient was brought into [facility] for evaluation of TIA. He was found to have left carotid stenosis of 50-75%. Patient has been symptom free. EKG sinus with PACs Chest x-ray: No acute process CT angiogram revealed a 50-75% stenosis of the left carotid bifurcation 25% of the right carotid bifurcation. No evidence of occlusion. Vertebral arteries patent. Multiple enlarged lymph nodes in the right upper chest right axilla and mediastinum concerning for malignancy. CAT scan of the brain revealed no acute intracranial process. Nonspecific white matter changes. Platelet count 103, WBC 8.4, hemoglobin 14. INR 1. Electrolytes and renal function normal. Troponin negative 1. Urine drug screen negative. Urinalysis negative for infection. Home cardiac medications: Atorvastatin 40 mg daily, ferrous sulfate 325 mg daily, Lasix 20 mg every 48 hours, Imdur 30 mg daily, Toprol XL 100 mg daily, Xarelto 20 mg at bedtime, spironolactone 50 mg every 2 days 08/2019: Biventricular pacemaker implantation Lexiscan stress test 09/27/2022 revealed normal EF Echocardiogram 07/2022 revealed normal EF, moderate TR, prosthetic AV, [employer] 26 mmHg, AV mean 14 mmHg, estimated RVSP 54 mmHg. 03/29 patient is seen today in follow-up. He underwent CHLOÉ with Dr. Beasley today that revealed normal left atrial appendage, normal size and systolic function, mitral annulus calcification with moderate mitral regurgitation, mild tricuspid regurgitation, bioprosthetic aortic valve with normal appearance. PEF oh with left to right shunting and no reversal with contrast bubble study. Mild atherosclerotic changes of the descending thoracic aorta. Patient is seen in the post procedure time and has no concerns at this time. Patient's has been updated regarding the results.she states that there is a plan for MRI but this has not been scheduled yet. Blood pressure 196/94, heart rate in the 60s. Physical examination: Gen: This is a 78-year-old male. He is resting in bed and appears to be comfortable. VS: reviewed HEENT: Head is atraumatic, normocephalic. Pupils equal, round. Sclerae is anicteric. NECK: Supple. No JVD. . LUNGS: Clear to auscultation. No wheezes or rhonchi. No intercostal retractions. HEART: Regular rate and rhythm. 2/6 systolic ejection murmur at the base. ABDOMEN: Soft No tenderness. EXTREMITIES: No pedal edema. No calf tenderness. NEUROLOGICAL: Patient is awake, alert and oriented x3. Assessment: TIA Valvular heart disease with previous aortic valve replacement Paroxysmal atrial fibrillation Hyperlipidemia PFO Plan: Continue patient's home cardiac medications including Xarelto Patient is cleared for discharge from cardiology and will follow-up with Dr. Beasley in 1-2 weeks. Nurse practitioner note has been reviewed, I agree with documented findings and plan of care. Patient was seen and examined. Objective - Vital Signs Vital signs: Vital Signs Temp 97.9 F 03/29/23 06:49 Pulse 63 03/29/23 06:49 Resp 18 03/29/23 06:49 BP 196/94 03/29/23 06:49 Pulse Ox 97 03/29/23 06:49 FiO2 21 03/28/23 10:11 Intake & Output 03/28/23 03/29/23 03/29/23 18:59 06:59 18:59 Intake Total 100 Balance 100 Intake: IV 100 Other: # Voids 1 2 - Labs CBC & Chem 7: 03/27/23 19:06 03/27/23 19:06
[2023-03-29 11:14] VITALS: BP 157/88; PULSE 60
--- NOTE | 2023-03-29 12:24 | CDI ---
Documentation Clarification Form Date: 03/29/2023 11:49:38 AM From: Amber Pavon RN, CCDS Admit Date: 03/27/2023 10:45:00 PM Patient Name: Jhonatan Rod Visit Number: [id number] Discharge Date: ATTENTION: The Clinical Documentation Specialists (CDI) and [facility] Coding Staff appreciate your assistance in clarifying documentation. Please respond to the clarification below the line at the bottom and electronically sign. The CDI & [facility] Coding staff will review the response and follow-up if needed. Please note: Queries are made part of the Legal Health Record. If you have any questions, please contact the author of this message via ITS. Dr. Susan Kent Your patient has the documented symptom of Encephalopathy in the H/P and subsequent progress notes. Additional clarification regarding the etiology/cause of this symptom is requested. 03/28 Vascular/surgery consult: After personally reviewing the images and the story clinically, does not sound to me like the patient has had a TIA. as the carotid itself is asymptomatic at this point. He was significant hypertensive at the time of his neurologic symptoms. History/Risk Factors: CA, HTN, Hyperlipidemia Clinical Indicators: 78-year-old male present with altered mental status, confusion at home and diagnosed with acute encephalopathy. On admission 03/27 Labs: WBC 8.4 BUN 13 CR 0.72 XR: No acute process 03/27 CT Brain No acute intracranial process TA: head and neck showing Left carotid bifurcation with 50-75% stenosis and right carotid bifurcation 25% stenosis 03/27 VS: 197/91 74 20 98.5, 153/104 , 169/87 71 13, 168/89 76 23, 192/100 80 19, 192/100 74 14 Treatment: Cardiac/Telemetry Monitoring Neuro checks Q2H X4 Q4HX6 Labetalol Hcl 20 MG IVP Once 03/27 Imdur 20 MG PO Daily 03/28 -03/29 Toprol Xl 100 MG PO Daily 03/28-713 Monitor vital signs Please clarify the etiology of the symptom of acute encephalopathy [ X ] Hypertensive Encephalopathy due to Hypertensive Urgency [ ] Hypertensive Encephalopathy due to Hypertensive Emergency [ ] Other condition (please specify) [ ] Unable to determine (Template Last Revised: October 2020) MTDD
--- NOTE | 2023-03-29 13:25 | P.DS ---
Providers Date of admission: 03/27/23 22:45 Expected date of discharge: 03/29/23 Attending physician: Davin Leiva MD Consults: 03/27/23 21:53 Consult Physician Urgent Consulting Provider: Jerad Foy Consult Reason/Comments: Altered mental status Do you want consulting provider notified?: Yes 03/28/23 10:15 Consult Physician Routine Consulting Provider: Ned Beasley Consult Reason/Comments: TIA, your patient, was off Xarelto for 2 day pre colonoscpy Do you want consulting provider notified?: Yes 03/28/23 10:30 Consult Physician Routine Consulting Provider: Barbra Villarreal Consult Reason/Comments: TIA, Left ICA stenosis Do you want consulting provider notified?: Yes 03/28/23 11:39 Consult Physician Routine Consulting Provider: Elver Quintanilla Consult Reason/Comments: abn lymph nodes on CTA, Do you want consulting provider notified?: Yes Primary care physician: Lewis Will MD Hospital Course: Discharge Diagnosis: Transient global amnesia likely related to hypertensive encephalopathy from hypertensive urgency on arrival Paroxysmal atrial fibrillation PFO Carotid arterial disease Hypertension Dyslipidemia History of Woodworth cell cancer Hospital Course: Patient is a 78-year-old male with paroxysmal atrial fibrillation on Xarelto, aortic valve replacement, Miguel Ángel cell carcinoma, and dyslipidemia who presented with acute encephalopathy. On arrival to the ER he was hypertensive with a blood pressure of 97/71. Urinalysis was grossly normal other than platelets of 103 which are chronic for the patient. Initial head CT showed no acute process. He is admitted for possible TIA. Patient recently had a planned colonoscopy for history of iron deficiency anemia and GI bleeding. Xarelto was held. He was seen by neurology who felt that this was likely transient global amnesia likely resulting from transient cerebral ischemia. His CT of the head and neck did show some stenosis on the left hand side and he was seen by vascular surgery who recommends continued outpatient follow-up. He was seen by cardiology and ultimately underwent a CHLOÉ which showed a small PFO. He was also seen by hematology oncology for lymphadenopathy and they recommended biopsy in the outpatient setting. Family prefers to follow-up with Dr. Yu. He was doing well and symptoms had resolved. Is determined stable for discharge. Imaging: CT head: No acute intracranial process, nonspecific white matter ischemic changes CT angiogram and a 50-75% stenosis in the left carotid bifurcation, multiple enlarged lymph nodes in the right upper chest and axilla CHLOÉ: Dilated left atrium, bioprosthetic aortic valve with normal appearance, PFO with [id number] shunting and no reversible Follow-up: Dr. Pineda in 1-2 days, Dr. Yu as soon as able, new medications include aspirin 81 mg daily, patient has an appointment with Dr. Goldstein in April which she should keep. He also will follow up with Dr. Villarreal for his carotid arterial disease. BP was mildly elevated on discharge and patient will follow BP daily at home and make a log for Dr. Pineda. -Case was discussed with deep in detail on 03/29/[address] Dutta and Dr. dickinson Patient seen and examined at bedside. Back to normal. No complaints. Wants to go home. Testing results discussed in detail with and patient at bedside. All questions answered. Vital signs reviewed and stable. General: nontoxic, no distress, appears at stated age Cardiovascular: S1S2 reg, no murmur, positive posterior tibial pulse bilateral, Lungs: CTA bilateral, no rhonchi, no rales , no accessory muscle use Ext: no gross muscle atrophy, no edema b/l lower extremities, no contractures Neuro: CN II-XI grossly intact, no focal neuro deficits Psych: Alert, oriented, appropriate affect A total of 37 minutes of time were spent preparing this complex discharge summar y. Patient was discharged on 12/28/22. This dictation was prepared using moziy voice recognition software. Though every attempt is made to correct errors during dictation some may still exist. Plan - Discharge Summary Discharge Rx Participant: Yes New Discharge Prescriptions: New Aspirin 81 mg PO DAILY #30 tab Continue Citalopram Hydrobromide [CeleXA] 20 mg PO HS Atorvastatin [Lipitor] 40 mg PO HS Spironolactone 50 mg PO Q2D Furosemide [Lasix] 20 mg PO Q48H Finasteride [Proscar] 5 mg PO DAILY Doxazosin Mesylate 8 mg PO BID Metoprolol Succinate [Toprol XL] 100 mg PO DAILY #90 tab Pantoprazole [Protonix] 40 mg PO DAILY Clenpiq 1 dose PO DIRECTED Rivaroxaban [Xarelto] 20 mg PO HS Ferrous Sulfate [Iron (65 MG Elemental)] 325 mg PO DAILY Isosorbide Mononitrate ER [Imdur] 30 mg PO DAILY Discharge Medication List Atorvastatin [Lipitor] 40 mg PO HS 04/01/19 [History] Citalopram Hydrobromide [CeleXA] 20 mg PO HS 04/01/19 [History] Doxazosin Mesylate 8 mg PO BID 04/01/19 [History] Finasteride [Proscar] 5 mg PO DAILY 04/01/19 [History] Furosemide [Lasix] 20 mg PO Q48H 04/01/19 [History] Spironolactone 50 mg PO Q2D 04/01/19 [History] Metoprolol Succinate [Toprol XL] 100 mg PO DAILY #90 tab 07/03/19 [Rx] Pantoprazole [Protonix] 40 mg PO DAILY 03/22/23 [History] Rivaroxaban [Xarelto] 20 mg PO HS 03/22/23 [History] Clenpiq 1 dose PO DIRECTED 03/27/23 [History] Ferrous Sulfate [Iron (65 MG Elemental)] 325 mg PO DAILY 03/27/23 [History] Isosorbide Mononitrate ER [Imdur] 30 mg PO DAILY 03/27/23 [History] Aspirin 81 mg PO DAILY #30 tab 03/29/23 [Rx] Follow up Appointment(s)/Referral(s): Ned Beasley MD [STAFF PHYSICIAN] - 2 Weeks Lewis Will MD [Primary Care Provider] - 1-2 days Barbra Villarreal DO [STAFF PHYSICIAN] - 1 Week Fatimah Rodriguez MD [STAFF PHYSICIAN] - As Needed (as previously scheduled) Andreas Yu MD [Medical Doctor] - 1 Week (some will call with further instructions) Activity/Diet/Wound Care/Special Instructions: Activity: As tolerated Diet: hear healthy Special Instructions: Check blood pressure once daily and make a log to bring to your appointment with Dr. Will. Discharge Disposition: HOME SELF-CARE
--- NOTE | 2023-03-29 17:37 | P.CONS ---
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 We were consulted for abnormal lymphadenopathy seen on CT. He is a new patient of Dr. Rodriguez who was evaluated for LATISHA on 03/12/23 in clinic. His CBC done in January/2023 revealed microcytic anemia, his iron studies were consistent with iron deficiency anemia. He started oral iron supplement in January/2023 and has been responding well. He also has had mild thrombocytopenia at least since 2019. He had EGD and colonoscopy in 03/2019, found to have broad based tubular adenoma in cecum and another one in the descending colon. He has had mild thrombocytopenia,which is relatively stable,at least since 2019,it is possibly related to peripheral sequestration,fatty liver,or possible peripheral consumption from artificial valve. He was referred to Dr. Sandoval for colonoscopy. He also has a history of Yale cell carcinoma of RUE, treated with excision, sentinel nodes biopsy followed by radiation in 2009 at [facility]. He also has been treated for sarcoma of his scalp approx 14 years ago. Patient presented to the emergency room for altered mental status. Patient states he was prepping for his colonoscopy with Dr. Hernandez at which time his noticed patient became confused and patient was brought to the ER for further evaluation. CT brain was negative for acute intracranial processes. Chest x- ray negative for acute cardiopulmonary processes. CTA head and neck revealed 50 to 75% stenosis of the left carotid bifurcation and 25% stenosis of the right carotid bifurcation secondary to calcified plaque. No evidence for occlusion, vertebral arteries are patent. Multiple enlarged lymph nodes in the right upper chest/right axilla and mediastinum.chest revealed. states patient has had hixtory of abnormal lymphadenopathy in LUE. Hemoglobin stable, 14. WBC 8.4, platelets 103,000. Patient's mentation at today's visit is at baseline. Patient reports he had an EGD with Dr. Sandoval approximately 1 year ago which was normal and a colonoscopy 4 years ago, as stated above in hem/onc history. Patient denies unintentional weight loss and night sweats. Patient follows up with dermatology every 3 months and had a follow-up approximately 1 month ago. Neurology and cardiology have been consulted with plan for CHLOÉ. Review of Systems 10 point ROS is negative except as stated in the HPI 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, see Dr Castellano H&P, has 24 hr heart monitor on, hiatel hernia History of Any Multi-Drug Resistant Organisms: None Reported Past Surgical History: Cardiac Valve Replacement, Cholecystectomy, Hernia Repair, Joint Replacement, Tonsillectomy Additional Past Surgical History / Comment(s): AORTIC VALVE REPLACEMENT 2011, COLONOSCOPY,SKIN GRAFT ON HEAD, LYMPH NODE FROM LT ARM REMOVED, rt knee replacement, umbilical hernia repair, pacemaker 07/02/2019 Past Anesthesia/Blood Transfusion Reactions: No Reported Reaction Additional Past Anesthesia/Blood Transfusion Reaction / Comm: no blood transfusion Past Psychological History: Depression Smoking Status: Former smoker Past Alcohol Use History: None Reported Additional Past Alcohol Use History / Comment(s): QUIT SMOKING 11/30/1979, smoked for 16 yrs, 3 PPD Past Drug Use History: None Reported - Past Family History Mother Family Medical History: Cancer Additional Family Medical History / Comment(s): melanoma Sister(s) Family Medical History: Cancer Additional Family Medical History / Comment(s): breast Father Additional Family Medical History / Comment(s): heart valve replacement, skin ca Medications and Allergies Home Medications Medication Instructions Recorded Confirmed Type Atorvastatin [Lipitor] 40 mg PO HS 04/01/19 03/27/23 History Citalopram Hydrobromide [CeleXA] 20 mg PO HS 04/01/19 03/27/23 History Doxazosin Mesylate 8 mg PO BID 04/01/19 03/27/23 History Finasteride [Proscar] 5 mg PO DAILY 04/01/19 03/27/23 History Furosemide [Lasix] 20 mg PO Q48H 04/01/19 03/27/23 History Spironolactone 50 mg PO Q2D 04/01/19 03/27/23 History Metoprolol Succinate [Toprol XL] 100 mg PO DAILY #90 tab 07/03/19 03/27/23 Rx Pantoprazole [Protonix] 40 mg PO DAILY 03/22/23 03/27/23 History Rivaroxaban [Xarelto] 20 mg PO HS 03/22/23 03/27/23 History Clenpiq 1 dose PO DIRECTED 03/27/23 03/27/23 History Ferrous Sulfate [Iron (65 MG 325 mg PO DAILY 03/27/23 03/27/23 History Elemental)] Isosorbide Mononitrate ER [Imdur] 30 mg PO DAILY 03/27/23 03/27/23 History Aspirin 81 mg PO DAILY #30 tab 03/29/23 Rx Allergies Allergy/AdvReac Type Severity Reaction Status Date / Time amoxicillin Allergy Rash/Hives Verified 03/27/23 22:22 cephalexin Allergy Rash/Hives Verified 03/27/23 22:22 erythromycin base Allergy Rash/Hives Verified 03/27/23 22:22 Physical Exam Vitals: Vital Signs Temp Pulse Resp BP Pulse Ox 03/29/23 11:02 60 157/88 93 L 03/29/23 10:47 59 L 153/82 93 L 03/29/23 10:32 60 167/93 95 03/29/23 10:18 60 168/87 95 03/29/23 10:04 61 178/89 97 03/29/23 09:47 61 190/98 99 03/29/23 09:32 60 167/91 94 L 03/29/23 09:17 60 151/91 94 L 03/29/23 09:02 60 172/89 03/29/23 06:49 97.9 F 63 18 196/94 97 03/29/23 00:39 97.9 F 62 19 184/92 97 03/28/23 20:30 19 03/28/23 19:28 98.7 F 60 18 161/86 96 Intake and Output 03/29/23 03/29/23 03/29/23 06:59 14:59 22:59 Intake Total 100 Balance 100 Intake: IV 100 Other: # Voids 2 - Constitutional General appearance: average body habitus, no acute distress - EENT Eyes: anicteric sclerae, EOMI ENT: hearing grossly normal - Neck approx 1.5cm palpable lymphadenopathy right lower neck and approx 2.0 cm mobile right axillary lymphadenopathy Neck: lymphadenopathy - Respiratory Respiratory: bilateral: CTA - Cardiovascular Rhythm: regular Heart sounds: normal: S1, S2 Abnormal Heart Sounds: no systolic murmur, no diastolic murmur, no rub, no S3 Gallop, no S4 Gallop, no click, no other - Integumentary Integumentary: cyanotic - Neurologic Neurologic: CNII-XII intact - Musculoskeletal Musculoskeletal: strength equal bilaterally - Psychiatric Psychiatric: A&O x's 3, appropriate affect, intact judgment & insight Results CBC & Chem 7: 03/27/23 19:06 03/27/23 19:06 Comments: CTA head and neck reviewed Chest x-ray: report reviewed CT Scan - head: report reviewed Assessment and Plan (1) Lymphadenopathy Status: Acute Priority: Medium Code(s): R59.1 - GENERALIZED ENLARGED LYMPH NODES SNOMED Code(s): 61863449 (2) Altered mental status Status: Acute Priority: High Code(s): R41.82 - ALTERED MENTAL STATUS, UNSPECIFIED SNOMED Code(s): 225287253 Plan: Lymphadenopathy: -CTA head and neck revealed multiple enlarged lymph nodes in the right upper chest/right axilla and mediastinum.chest revealed. 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 Denies constitutional symptoms -Spoke with IM and surgery, will schedule biopsy with Dr. Yu upon discharge at patient's request. Will f/u with pathology and schedule clinic f/u with Dr. Rodriguez Altered mental status: -Has returned to baseline -Being worked up by neuro and cardiology attests: I have performed H&P and developed impression and plan of care for patient, discussed with dictator. I agree with dictated note, documented as a scribe
== END 2023-03-29 15:33 | disposition home or self-care (01) ==
LOC: EC 17:55 → 5NMEDONC 22:45 → INTOOBSV 22:45 → 4SSUR 22:59 → UNDODISIN 03-29 15:33
PROVIDERS: ADMIT Internal Medicine; ATTEND Internal Medicine
DX: G45.9 Transient cerebral ischemic attack, unspecified (principal); I67.4 Hypertensive encephalopathy; I16.0 Hypertensive urgency; I65.23 Occlusion and stenosis of bilateral carotid arteries; G31.9 Degenerative disease of nervous system, unspecified; I89.0 Lymphedema, not elsewhere classified; K21.9 Gastro-esophageal reflux disease without esophagitis; E78.5 Hyperlipidemia, unspecified; I10 Essential (primary) hypertension; F32.A Depression, unspecified; I67.2 Cerebral atherosclerosis; N42.9 Disorder of prostate, unspecified; G47.33 Obstructive sleep apnea (adult) (pediatric); D50.9 Iron deficiency anemia, unspecified; I48.0 Paroxysmal atrial fibrillation; D69.6 Thrombocytopenia, unspecified; I70.0 Atherosclerosis of aorta; I08.1 Rheumatic disorders of both mitral and tricuspid valves; H91.90 Unspecified hearing loss, unspecified ear; Q21.12 Patent foramen ovale; Z79.899 Other long term (current) drug therapy; Z88.0 Allergy status to penicillin; Z88.1 Allergy status to other antibiotic agents; Z85.821 Personal history of Merkel cell carcinoma; Z85.828 Personal history of other malignant neoplasm of skin; Z95.2 Presence of prosthetic heart valve; Z90.49 Acquired absence of other specified parts of digestive tract; Z96.651 Presence of right artificial knee joint; Z95.0 Presence of cardiac pacemaker; Z87.891 Personal history of nicotine dependence; Z79.01 Long term (current) use of anticoagulants
CPT/HCPCS: 96374; 99285; 36415; 93005; 93312; 93320; 93325; 80053; 83605; 84484; 85025; 85610; 85730; 81003; 80306; 71046; 70496; 70450; 70498; G0378 ×3; S0138 ×2; J2250; J3010; Q9967

== ENCOUNTER → 2023-07-06 | Outpatient (CLI) | payer MEDICARE ==
--- NOTE | 2023-07-06 08:19 | XR ---
EXAMINATION TYPE: XR chest 2V DATE OF EXAM: 07/06/2023 COMPARISON: 03/27/2023 HISTORY: 78-year-old male J18.9, weakness for 5 days, cough and shortness of breath TECHNIQUE: Frontal and lateral views FINDINGS: Left anterior chest wall pacemaker generator with right atrial and right ventricular leads. Median st ernotomy wires and prosthetic aortic valve. Heart delay in size. Atherosclerotic arch calcifications. Focal masslike consolidation has developed in the right mid lung, new from 03/27/2023. IMPRESSION: Focal masslike consolidation in the right mid lung, new from 03/27/2023. Interval development in a rel atively short time suggests pneumonia. Follow-up after treatment to exclude the less likely possibili ty of underlying mass.
== END | disposition home or self-care (01) ==
LOC: LABWHC1 07:00
PROVIDERS: ATTEND Internal Medicine
DX: J18.9 Pneumonia, unspecified organism (principal); R06.02 Shortness of breath
CPT/HCPCS: 71046; 87502

== ENCOUNTER → 2023-07-26 | Outpatient (CLI) | payer MEDICARE ==
[2023-07-26 11:49] LABS: ALT 32 U/L (10-49); AST 20 U/L (14-35); Chol/HDL Ratio 2.94 Ratio; VLDL Calculation 15.98 mg/dL (5.00-40.00)
== END | disposition home or self-care (01) ==
LOC: LABWHC1 06:48
PROVIDERS: ATTEND Internal Medicine Interventional Cardiology
DX: E78.2 Mixed hyperlipidemia (principal)
CPT/HCPCS: 36415; 80061; 84450; 84460

== ENCOUNTER → 2023-07-31 | Outpatient (CLI) | payer MEDICARE ==
--- NOTE | 2023-07-31 09:20 | XR ---
EXAMINATION TYPE: XR chest 2V DATE OF EXAM: 07/31/2023 COMPARISON: 07/06/2023 HISTORY: Shortness of breath TECHNIQUE: Frontal and lateral views of the chest are obtained. FINDINGS: Scattered senescent parenchymal changes noted. Hyperinflation compatible with COPD. Resolution of right upper lobe masslike infiltrate. No current infiltrates are seen with certainty. Heart size is stable. Mediastinal structures are stable and grossly unremarkable. No evidence for hilar prominence. Degenerative changes dorsal spine. IMPRESSION: 1. Resolution of right upper lobe masslike infiltrate. No current infiltrates are seen with certainty .
== END | disposition home or self-care (01) ==
LOC: RADXRMAIN 08:18
PROVIDERS: ATTEND Internal Medicine
DX: J18.9 Pneumonia, unspecified organism (principal); R06.02 Shortness of breath
CPT/HCPCS: 71046

== ENCOUNTER 2024-02-14 22:13 | Emergency (ER) | payer MEDICARE ==
[2024-02-14 22:36] VITALS: RESP 18; TEMP 97.4
--- NOTE | 2024-02-14 23:37 | XR ---
EXAM: XR Left Hip With Pelvis When Performed, 1 View CLINICAL HISTORY: ITS.[email or web address] XR Reason: Fall TECHNIQUE: Frontal view of the left hip with pelvis when performed. COMPARISON: No relevant prior studies available. FINDINGS: Bones/joints: Osseous demineralization. No fracture or subluxation. CAM morphology of the LEFT femoral neck. Soft tissues: Unremarkable. IMPRESSION: No fracture or subluxation.
--- NOTE | 2024-02-15 00:32 | ED ---
Fall HPI - General Chief Complaint: Fall Stated Complaint: Fall-hip pain Time Seen by Provider: 02/14/24 23:55 Source: patient Mode of arrival: wheelchair - History of Present Illness Complaint: fall Onset/Timin -: hour(s) Fall From: standing When Fall Occurred: 4-[address] Fall Occurred: home Loss of Consciousness: none Prolonged Down Time?: no Symptoms Prior to Fall: none Location - Extremities: Left: Thigh Severity: moderate Quality: dull Context: tripped/slipped Associated Symptoms: denies - Related Data Home Medications Medication Instructions Recorded Confirmed Atorvastatin [Lipitor] 40 mg PO HS 04/01/19 03/27/23 Citalopram Hydrobromide [CeleXA] 20 mg PO HS 04/01/19 03/27/23 Doxazosin Mesylate 8 mg PO BID 04/01/19 03/27/23 Finasteride [Proscar] 5 mg PO DAILY 04/01/19 03/27/23 Furosemide [Lasix] 20 mg PO Q48H 04/01/19 03/27/23 Spironolactone 50 mg PO Q2D 04/01/19 03/27/23 Pantoprazole [Protonix] 40 mg PO DAILY 03/22/23 03/27/23 Rivaroxaban [Xarelto] 20 mg PO HS 03/22/23 03/27/23 Clenpiq 1 dose PO DIRECTED 03/27/23 03/27/23 Ferrous Sulfate [Iron (65 MG 325 mg PO DAILY 03/27/23 03/27/23 Elemental)] Isosorbide Mononitrate ER [Imdur] 30 mg PO DAILY 03/27/23 03/27/23 Previous Rx's Medication Instructions Recorded Metoprolol Succinate [Toprol XL] 100 mg PO DAILY #90 tab 07/03/19 Aspirin 81 mg PO DAILY #30 tab 03/29/23 HYDROcodone/APAP 5-325MG [Norris 1 tab PO Q4HR PRN 3 Days #18 tab 02/15/24 5-325] Allergies Allergy/AdvReac Type Severity Reaction Status Date / Time amoxicillin Allergy Rash/Hives Verified 02/14/24 22:18 cephalexin Allergy Rash/Hives Verified 02/14/24 22:18 erythromycin base Allergy Rash/Hives Verified 02/14/24 22:18 Review of Systems ROS Statement: Those systems with pertinent positive or pertinent negative responses have been documented in the HPI. ROS Other: All systems not noted in ROS Statement are negative. 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, see Dr Castellano H&P, has 24 hr heart monitor on, hiatel hernia History of Any Multi-Drug Resistant Organisms: None Reported Past Surgical History: Cardiac Valve Replacement, Cholecystectomy, Hernia Repair, Joint Replacement, Tonsillectomy Additional Past Surgical History / Comment(s): AORTIC VALVE REPLACEMENT 2011, COLONOSCOPY,SKIN GRAFT ON HEAD, LYMPH NODE FROM LT ARM REMOVED, rt knee replacement, umbilical hernia repair, pacemaker 07/02/2019 Past Anesthesia/Blood Transfusion Reactions: No Reported Reaction Additional Past Anesthesia/Blood Transfusion Reaction / Comment(s): no blood transfusion Past Psychological History: Depression Smoking Status: Former smoker Past Alcohol Use History: Occasional Past Drug Use History: None Reported - Past Family History Mother Family Medical History: Cancer Additional Family Medical History / Comment(s): melanoma Sister(s) Family Medical History: Cancer Additional Family Medical History / Comment(s): breast Father Additional Family Medical History / Comment(s): heart valve replacement, skin ca General Exam Limitations: no limitations General appearance: alert, in no apparent distress Head exam: Present: atraumatic, normocephalic Eye exam: Present: normal appearance. Absent: scleral icterus, conjunctival injection Neck exam: Present: normal inspection, full ROM. Absent: tenderness Respiratory exam: Absent: respiratory distress, wheezes, rales, rhonchi, stridor, chest wall tenderness Cardiovascular Exam: Present: regular rate, normal rhythm, normal heart sounds. Absent: systolic murmur, diastolic murmur, rubs, gallop GI/Abdominal exam: Present: soft. Absent: distended, tenderness, guarding, rebound, rigid, mass Extremities exam: Present: normal inspection, tenderness (Lateral aspect of hip. No obvious deformity), normal capillary refill. Absent: pedal edema, calf tenderness Back exam: Present: normal inspection. Absent: CVA tenderness (R), CVA tenderness (L), paraspinal tenderness, vertebral tenderness Neurological exam: Present: alert. Absent: motor sensory deficit Skin exam: Present: warm, dry, intact, normal color. Absent: rash Course Vital Signs 02/14/24 02/15/24 22:15 00:10 Temperature 97.4 F L Pulse Rate 61 65 Respiratory 18 18 Rate Blood Pressure 143/80 138/71 O2 Sat by Pulse 96 95 Oximetry Medical Decision Making - Medical Decision Making The patient had hip x-ray which I interpreted as negative for acute fracture or dislocation. Was pt. sent in by a medical professional or institution (, PA, HYDROELECTRIC STATION OPERATOR, urgent care, hospital, or intermediate...) When possible be specific @ -[No] Did you speak to anyone other than the patient for history (EMS, parent, family, police, friend...)? What history was obtained from this source @ -[No] Did you review nursing and triage notes (agree or disagree)? Why? @ -[I reviewed and agree with nursing and triage notes] Were old charts reviewed (outside hosp., previous admission, EMS record, old EKG, old radiological studies, urgent care reports/EKG's, intermediate records)? Report findings @ -[No old charts were reviewed] Differential Diagnosis (chest pain, altered mental status, abdominal pain women, abdominal pain men, vaginal bleeding, weakness, fever, dyspnea, syncope, headache, dizziness, GI bleed, back pain, seizure, CVA, palpatations, mental health, musculoskeletal)? @ -[Differential Musculoskeletal Muscular strain, contusion, ligament sprain, fracture, arthritis, septic arthritis, bursitis, cellulitis, muscle spasm, nerve compression, DVT, arterial occlusion, herpes zoster, electrolyte abnormality, tumor.... This is not meant to be in all inclusive list EKG interpreted by me (3pts min.). @ -[As above] X-rays interpreted by me (1pt min.). @ -[I interpreted as above CT interpreted by me (1pt min.). @ -[None done] U/S interpreted by me (1pt. min.). @ -[None done] What testing was considered but not performed or refused? (CT, X-rays, U/S, labs)? Why? @ -[None] What meds were considered but not given or refused? Why? @ -[None] Did you discuss the management of the patient with other professionals (professionals i.e. Dr., PA, HYDROELECTRIC STATION OPERATOR, lab, RT, psych nurse, mental health social worker, slate picker, teacher, chief strategy officer, catalytic case operator)? Give summary @ -[No] Was smoking cessation discussed for >3mins.? @ -[No] Was critical care preformed (if so, how long)? @ -[No] Were there social determinants of health that impacted care today? How? (Homelessness, low income, unemployed, alcoholism, drug addiction, transportation, low edu. Level, literacy, decrease access to med. care, long term, rehab)? @ -[No] Was there de-escalation of care discussed even if they declined (Discuss DNR or withdrawal of care, Hospice)? DNR status @ -[No] What co-morbidities impacted this encounter? (DM, HTN, Smoking, COPD, CAD, Cancer, CVA, ARF, Chemo, Hep., AIDS, mental health diagnosis, sleep apnea, morbid obesity)? @ -[None] Was patient admitted / discharged? Hospital course, mention meds given and route, prescriptions, significant lab abnormalities, going to OR and other pertinent info. @ -[Patient is 79-year-old man with ground-level fall resulting in left hip pain. The exam reveals tenderness but no deformity. The x-ray unremarkable. Patient feeling better and will follow-up as needed basis. Undiagnosed new problem with uncertain prognosis? @ -[No] Drug Therapy requiring intensive monitoring for toxicity (Heparin, Nitro, Insulin, Cardizem)? @ -[No] Were any procedures done? @ -[No] Diagnosis/symptom? @ -[Acute fall injury Left hip contusion Acute, or Chronic, or Acute on Chronic? @ -[Acute Uncomplicated (without systemic symptoms) or Complicated (systemic symptoms)? @ -Uncomplicated Side effects of treatment? @ -[No] Exacerbation, Progression, or Severe Exacerbation? @ -[No] Poses a threat to life or bodily function? How? (Chest pain, USA, NM, pneumonia, PE, COPD, DKA, ARF, appy, cholecystitis, CVA, Diverticulitis, Homicidal, Suicidal, threat to staff... and all critical care pts) @ -[No] Disposition Clinical Impression: Fall, Hip injury Disposition: HOME SELF-CARE Condition: Good Instructions (If sedation given, give patient instructions): Hip Sprain (ED) Prescriptions: HYDROcodone/APAP 5-325MG [Norris 5-325] 1 tab PO Q4HR PRN 3 Days #18 tab PRN Reason: Pain Is patient prescribed a controlled substance at d/c from ED?: Yes When asked, does pt state using other controlled substances?: No If prescribed controlled substance>3 days was MAPS reviewed?: Prescribed <3 Days If opioid is for acute pain is fill amount 7 days or less?: Yes If Rx opioid, was Start Talking consent form obtained?: Yes Referrals: Lewis Will DO [Primary Care Provider] - 1-2 days Papi Ruiz MD [STAFF PHYSICIAN] - 1-2 days
[2024-02-15] MEDS ORDERED: HYDROcodone/APAP 5-325MG 1 EACH TAB PO STA (00:40)
[2024-02-15 01:07] VITALS: BP 138/71; PULSE 65
[2024-02-15] MEDS: HYDROcodone/APAP 5-325MG 1 EACH TAB PO STA (01:09)
== END 2024-02-15 01:16 | disposition home or self-care (01) ==
LOC: EC 22:13
DX: S70.02XA Contusion of left hip, initial encounter (principal); Z87.891 Personal history of nicotine dependence; Z88.0 Allergy status to penicillin; Z88.6 Allergy status to analgesic agent; Z88.1 Allergy status to other antibiotic agents; W01.0XXA Fall on same level from slipping, tripping and stumbling without subsequent striking against object, initial encounter
CPT/HCPCS: 73502; 99283

== ENCOUNTER → 2024-02-21 | Outpatient (CLI) | payer MEDICARE ==
[2024-02-21 10:31] LABS: HGB 10.3 g/dL (13.0-17.0); MCH 24.9 pg (27.0-32.0); MCHC 30.3 g/dL (32.0-37.0); MCV 82.3 FL (80.0-97.0); Mean Platelet Volume 11.5 FL (9.5-12.2); NRBC Per 100 WBC 0 X 10*3/uL (0.00-0.01); Platelet Count 134 X 10*3/uL (140-440); RBC 4.13 X 10*6/uL (4.40-5.60); WBC 9.68 X 10*3/uL (4.50-10.00)
[2024-02-21 11:01] LABS: ALT 27 U/L (10-49); AST 22 U/L (14-35); Albumin 3.7 g/dL (3.8-4.9); Albumin/Globulin Ratio 1.76 Ratio (1.60-3.17); Alkaline Phosphatase 95 U/L (41-126); Blood Urea Nitrogen 22.4 mg/dL (9.0-27.0); Calcium 8.8 mg/dL (8.7-10.3); Carbon Dioxide 20.7 mmol/L (21.6-31.8); Chloride 109 mmol/L (96-109); Chol/HDL Ratio 2.97 Ratio; Globulin 2.1 g/dL (1.6-3.3); Glucose 114 mg/dL (70-110); LDL Cholesterol,Calculated 39.6 mg/dL (0.0-131.0); Magnesium 1.9 mg/dL (1.5-2.4); Potassium 4.2 mmol/L (3.5-5.5); Sodium 141 mmol/L (135-145); Total Bilirubin 1.5 mg/dL (0.3-1.2); Total Protein 5.8 g/dL (6.2-8.2); VLDL Calculation 17.44 mg/dL (5.00-40.00)
[2024-02-21 12:18] LABS: Basophils # (A) 0.04 X 10*3/uL (0.00-0.10); Basophils % (A) 0.4 %; Eosinophils # (A) 0.22 X 10*3/uL (0.04-0.35); Eosinophils % (A) 2.3 %; Lymphocytes # (A) 4.36 X 10*3/uL (0.90-5.00); Monocytes % (A) 7.2 %; Neutrophils # (A) 4.32 X 10*3/uL (1.80-7.70); Neutrophils % (A) 44.7 %
== END | disposition home or self-care (01) ==
LOC: LABWHC1 06:48
PROVIDERS: ATTEND Internal Medicine Interventional Cardiology
DX: E78.2 Mixed hyperlipidemia (principal); C91.10 Chronic lymphocytic leukemia of B-cell type not having achieved remission; I10 Essential (primary) hypertension; R73.9 Hyperglycemia, unspecified; I48.0 Paroxysmal atrial fibrillation
CPT/HCPCS: 36415; 80053; 80061; 83036; 83735; 84443; 85025

== ENCOUNTER → 2024-03-07 | Outpatient (CLI) | payer MEDICARE ==
[2024-03-07 11:12] LABS: BUN/Creat Ratio 20.89 Ratio (12.00-20.00); Blood Urea Nitrogen 18.8 mg/dL (9.0-27.0); Carbon Dioxide 22.3 mmol/L (21.6-31.8); Chloride 108 mmol/L (96-109); Glucose 108 mg/dL (70-110); Potassium 4.4 mmol/L (3.5-5.5); Sodium 140 mmol/L (135-145)
[2024-03-07 11:22] LABS: NT-Pro-B-Type Natriuretic Pept 1083 pg/mL (0-450)
== END | disposition home or self-care (01) ==
LOC: LABWHC1 06:50
PROVIDERS: ATTEND Internal Medicine Critical Care Medicine
DX: R06.02 Shortness of breath (principal)
CPT/HCPCS: 36415; 80048; 83880

== ENCOUNTER → 2024-03-11 | Outpatient (CLI) | payer MEDICARE ==
--- NOTE | 2024-03-11 13:30 | CT ---
EXAMINATION TYPE: CT ChestAbdPelvis w con DATE OF EXAM: 03/11/2024 COMPARISON: None HISTORY: lymphoma CT DLP: 2723.3 mGycm CONTRAST: CT scan of the chest, abdomen and pelvis is performed with Oral Contrast and with IV Contrast, patien t injected with 100 mL of Isovue 300. CT Chest: LUNGS: Scattered nonspecific groundglass densities within the upper lobes may reflect inflammatory ve rsus postinflammatory change. No evidence for airspace consolidation or volume loss. No pulmonary nod ule or mass is detected. Small effusions present. MEDIASTINUM: Thoracic aorta is of normal caliber. The heart is not enlarged. Multiple subcentimeter mediastinal lymph nodes. No definite hilar adenopathy appreciated. HILAR STRUCTURES: No evidence for mass. Small subcentimeter hilar lymph nodes seen. OTHER: Enlarged right axillary lymph nodes measuring up to 1.5 cm. Left axillary adenopathy which doroteo ears conglomerate and appearance measures 2.3 cm x 3.5 cm. MediPort catheter overlies the left chest wall. CONTRAST CT ABDOMEN AND PELVIS FINDINGS: LIVER/GB: The gallbladder is surgically absent. Probable cyst within the dome of the liver. Streak ar tifact limits evaluation for placement of the patient's hands over the abdomen. Biliary tree is of no rmal caliber. PANCREAS: No inflammation. No distinct mass. SPLEEN: Splenomegaly measuring 19 cm AP dimension. ADRENALS: No nodule. No thickening. KIDNEYS/BLADDER: No hydronephrosis. No nephrolithiasis. Renal parenchymal thinning bilaterally. Angel al cortical cyst midpole left kidney 2.5 cm and similar appearing cyst lower pole left kidney. BOWEL: Normal appendix. Normal bowel caliber. No inflammation. GENITAL ORGANS: No gross abnormality. LYMPH NODES: Retrocaval adenopathy measuring up to 1.9 cm. Aorto intracaval adenopathy measuring 1 cm . Retroaortic adenopathy measuring up to 1 cm. Pericaval adenopathy measuring up to 1.4 cm iliac santosh n adenopathy on the left 1.6 cm and on the right up to 1.4 cm. No definite inguinal adenopathy. AORTA: No significant abnormality. OSSEOUS STRUCTURES: Severe degenerative narrowing lower lumbar spine. OTHER: Fat-containing left scrotal hernia. IMPRESSION: 1. Adenopathy as discussed above. 2. Fat-containing left scrotal hernia. 3. Splenomegaly 4. Nonspecific groundglass infiltrates.
== END | disposition home or self-care (01) ==
LOC: RADCTMAIN 11:13
PROVIDERS: ATTEND Internal Medicine Hematology & Oncology
DX: C83.08 Small cell B-cell lymphoma, lymph nodes of multiple sites (principal); R16.1 Splenomegaly, not elsewhere classified; R59.9 Enlarged lymph nodes, unspecified; K40.90 Unilateral inguinal hernia, without obstruction or gangrene, not specified as recurrent; D50.9 Iron deficiency anemia, unspecified; D69.6 Thrombocytopenia, unspecified; C4A.61 Merkel cell carcinoma of right upper limb, including shoulder
CPT/HCPCS: 71260; 74177; Q9967

== ENCOUNTER 2024-03-18 05:56 | Day surgery (SDC) | payer MEDICARE ==
[~2024-03-18 05:56] MED LIST changes: -LACTATED RINGERS 1,000 ML IV SCH; -LIDOCAINE 1% 20 ML VIAL (10MG/ML) FOR IV START INTRADERMA PRN; +SODIUM CHLORIDE 0.9% 1,000 ML IV SCH
[2024-03-18 07:13] VITALS: BP 133/63; PULSE 63; RESP 18; TEMP 97.8
--- NOTE | 2024-03-18 07:41 | P.PN ---
Subjective Progress Note Date: 03/18/24 The patient presented for cardioversion for atrial tachycardia, he is back in sinus mechanism with paced rhythm and evidence of dual-chamber pacemaker. He will continue on his present medical regimen and follow-up as an outpatient. Objective - Vital Signs Vital signs: Vital Signs Temp 97.8 F 03/18/24 06:57 Pulse 63 03/18/24 06:57 Resp 18 03/18/24 06:57 BP 133/63 03/18/24 06:57 Pulse Ox 97 03/18/24 06:57 FiO2
== END 2024-03-18 07:30 | disposition home or self-care (01) ==
LOC: OR 05:56
PROVIDERS: ATTEND Internal Medicine Interventional Cardiology
DX: Z53.8 Procedure and treatment not carried out for other reasons (principal); I47.19 Other supraventricular tachycardia

== ENCOUNTER → 2024-05-14 | Outpatient (CLI) | payer MEDICARE ==
[2024-05-14 10:46] LABS: ALT 24 U/L (10-49); AST 18 U/L (14-35); Albumin 3.9 g/dL (3.8-4.9); Albumin/Globulin Ratio 2.17 Ratio (1.60-3.17); Alkaline Phosphatase 84 U/L (41-126); Calcium 9.1 mg/dL (8.7-10.3); Carbon Dioxide 21.6 mmol/L (21.6-31.8); Chloride 109 mmol/L (96-109); Chol/HDL Ratio 2.63 Ratio; Globulin 1.8 g/dL (1.6-3.3); Glucose 102 mg/dL (70-110); LDL Cholesterol,Calculated 30.6 mg/dL (0.0-131.0); Potassium 4.5 mmol/L (3.5-5.5); Sodium 142 mmol/L (135-145); Total Bilirubin 1.3 mg/dL (0.3-1.2); Total Protein 5.7 g/dL (6.2-8.2)
== END ==
LOC: LABWHC1 06:51
PROVIDERS: ATTEND Internal Medicine Interventional Cardiology
DX: E78.2 Mixed hyperlipidemia (principal)
CPT/HCPCS: 36415; 80053; 80061

== ENCOUNTER → 2024-06-13 | Outpatient (CLI) | payer MEDICARE ==
[2024-06-13 11:45] LABS: NT-Pro-B-Type Natriuretic Pept 932 pg/mL (0-450)
[2024-06-13 11:47] LABS: ALT 25 U/L (10-49); AST 21 U/L (14-35); Albumin 3.7 g/dL (3.8-4.9); Albumin/Globulin Ratio 1.61 Ratio (1.60-3.17); Alkaline Phosphatase 86 U/L (41-126); BUN/Creat Ratio 19.67 Ratio (12.00-20.00); Blood Urea Nitrogen 23.6 mg/dL (9.0-27.0); Calcium 9.2 mg/dL (8.7-10.3); Carbon Dioxide 20.9 mmol/L (21.6-31.8); Chloride 106 mmol/L (96-109); Globulin 2.3 g/dL (1.6-3.3); Glucose 105 mg/dL (70-110); Potassium 4.6 mmol/L (3.5-5.5); Sodium 139 mmol/L (135-145); Total Bilirubin 0.8 mg/dL (0.3-1.2)
== END | disposition home or self-care (01) ==
LOC: LABWHC1 06:47
PROVIDERS: ATTEND Internal Medicine Interventional Cardiology
DX: I50.33 Acute on chronic diastolic (congestive) heart failure (principal)
CPT/HCPCS: 36415; 80053; 83880

== ENCOUNTER 2024-08-13 05:57 | Day surgery (SDC) | payer MEDICARE ==
[~2024-08-13 05:57] MED LIST changes: +LACTATED RINGERS 1,000 ML IV SCH; +LIDOCAINE 1% (10MG/ML) FOR IV START INTRADERMA PRN; -SODIUM CHLORIDE 0.9% 1,000 ML IV SCH
[2024-08-13] MEDS: IV FLUID CONTINUATION 500 ML IV ONE (06:29)
[2024-08-13 06:53] VITALS: TEMP 97.1
[2024-08-13] MEDS: SODIUM CHLORIDE 0.9% 500 ML 500 ML IV SCH (06:53)
[2024-08-13 06:59] LABS: Glucose,Whole Blood 119 mg/dL (70-110)
[2024-08-13] MEDS ORDERED: LIDOCAINE 1% INJ 10MG/ML (20 ML MDV) ONE (07:10)
[2024-08-13] MEDS ORDERED: PROPOFOL 10 MG/ML 20 ML VIAL IV ONE (07:10)
[2024-08-13 07:34] LABS: African American GFR (CKD) >90 (>60 ml/min/1.73 sqM); Anion Gap 3 mmol/L; Blood Urea Nitrogen 30 mg/dL (9-20); Carbon Dioxide 23 mmol/L (22-30); Chloride 110 mmol/L (98-107); Glucose 125 mg/dL (74-99); Non-African American GFR(CKD) 83 (>60 ml/min/1.73 sqM); Sodium 136 mmol/L (137-145)
--- NOTE | 2024-08-13 07:40 | P.PCN ---
Date of Procedure: 08/13/24 Description of Procedure: Indication: Atrial fibrillation Procedure Description: After explaining the procedure to the patient, it's risk and complications, blood pressure, heart rate and O2 saturation were monitored. The throat was sprayed with Cetacaine. Patient received sedation per anesthesia department. The probe was introduced into the esophagus without difficulty. Images were obtained. Following that, the probe was removed. There was no immediate complication. Findings: Left atrial size is dilated, left atrial appendage is normal. Left ventricular size and systolic function are normal. A bioprosthetic aortic valve was noted with normal appearance. Mitral annulus calcification was noted. Tricuspid valve appears to be normal. A wire was noted in the right ventricle and right atrium. No pericardial effusion was noted. Descending thoracic aorta appears to be normal. Contrast bubble study revealed minimal shunting. Doppler: Pulse wave and color Doppler were obtained, and revealed mild mitral with mild to moderate tricuspid regurgitation. There was no shunting by color Doppler study. Conclusion: 1. Dilated left atrium with normal appearance of the left atrial appendage 2. Normal left ventricular size and systolic function 3. Bioprosthetic aortic valve with normal appearance 4. Mild mitral with mild to moderate tricuspid regurgitation 5. Minimal late shunting by contrast bubble study across the interatrial septum 6. A wire was noted in the right atrium and right ventricle Cardioversion: After obtaining CHLOÉ and sedated state by the anesthesia department a synchronized biphasic cardioversion using 150 J was performed with adventist of sinus mechanism, there was no immediate complications.
[2024-08-13 07:42] VITALS: RESP 16
[2024-08-13 08:29] VITALS: BP 105/60; PULSE 66
[2024-08-13] MEDS ORDERED: NON FORMULARY DRUG (Empagliflozin [Jardiance] 10 MG Tablet) PO SCH (09:00)
[2024-08-13] MEDS ORDERED: SPIRONOLACTONE 25 MG TAB PO SCH (09:00)
[2024-08-13] MEDS ORDERED: FUROSEMIDE 20 MG TAB PO SCH (09:00)
[2024-08-13] MEDS ORDERED: PANTOPRAZOLE 40 MG TABLET PO SCH (17:30)
[2024-08-13] MEDS ORDERED: ATORVASTATIN 40 MG TAB PO SCH (21:00)
[2024-08-13] MEDS ORDERED: hydrALAZINE HCL 25 MG TAB PO SCH (21:00)
[2024-08-13] MEDS ORDERED: FAMOTIDINE 20 MG TAB PO SCH (21:00)
[2024-08-13] MEDS ORDERED: RIVAROXABAN 20 MG TAB PO SCH (21:00)
[2024-08-14] MEDS ORDERED: LOSARTAN 50 MG TAB PO SCH (09:00)
[2024-08-14] MEDS ORDERED: FINASTERIDE 5 MG TAB PO SCH (09:00)
[2024-08-14] MEDS ORDERED: ASPIRIN 81 MG PO SCH (09:00)
[2024-08-14] MEDS ORDERED: ISOSORBIDE MONONITRATE ER 30 MG TAB.ER.24H PO SCH (09:00)
[2024-08-14] MEDS ORDERED: METOPROLOL SUCCINATE (ER) 50 MG TAB.ER.24H PO SCH (09:00)
== END 2024-08-13 08:45 | disposition home or self-care (01) ==
LOC: OR 05:57
PROVIDERS: ATTEND Internal Medicine Interventional Cardiology
DX: I48.11 Longstanding persistent atrial fibrillation (principal); I11.0 Hypertensive heart disease with heart failure; I50.33 Acute on chronic diastolic (congestive) heart failure; I25.10 Atherosclerotic heart disease of native coronary artery without angina pectoris; E78.2 Mixed hyperlipidemia; G47.33 Obstructive sleep apnea (adult) (pediatric); I08.1 Rheumatic disorders of both mitral and tricuspid valves; I73.9 Peripheral vascular disease, unspecified; I65.22 Occlusion and stenosis of left carotid artery; C91.10 Chronic lymphocytic leukemia of B-cell type not having achieved remission; D63.0 Anemia in neoplastic disease; Z79.82 Long term (current) use of aspirin; Z79.84 Long term (current) use of oral hypoglycemic drugs; Z79.01 Long term (current) use of anticoagulants; Z79.899 Other long term (current) drug therapy; Z87.891 Personal history of nicotine dependence; Z95.2 Presence of prosthetic heart valve; Z95.0 Presence of cardiac pacemaker; Z88.1 Allergy status to other antibiotic agents; Z88.8 Allergy status to other drugs, medicaments and biological substances; Z82.49 Family history of ischemic heart disease and other diseases of the circulatory system
CPT/HCPCS: 93312; 93320; 93325; 92960; 80048; J2003; J2704

== ENCOUNTER → 2024-09-15 | Outpatient (CLI) | payer MEDICARE ==
[2024-09-15 08:23] LABS: African American GFR (CKD) >90 (>60 ml/min/1.73 sqM); Blood Urea Nitrogen 21 mg/dL (9-20); Non-African American GFR(CKD) >90 (>60 ml/min/1.73 sqM)
--- NOTE | 2024-09-18 21:58 | CT ---
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 Reconstructed images in the coronal plane. Delayed images through the kidneys. Contrast used:100 mL of Isovue 300 with IV Contrast, (none if empty) Oral contrast used: with Oral Contrast (none if empty) CT DLP: 2364.8 mGycm, Automated exposure control for dose reduction was used. FINDINGS: CT CHEST: Portion of the thyroid visualized is normal. No suspicious lung nodules or focal infiltrates are present. Multiple prominent lymph nodes are scattered within the mediastinum. The largest measures 1.6 cm in t he paratracheal region and right hilar lymph node is present. The ascending aorta diameter at the level of the main pulmonary artery is 3.5 cm. The main pulmonary artery diameter at the bifurcation is 2.[address] ABDOMEN: Liver: Several small hypodensities are scattered throughout the liver, present previously Spleen: Enlarged Pancreas: Normal Adrenal glands: The adrenal glands are normal. Gallbladder: Normal Kidneys: No masses are evident. No hydronephrosis is present. There is a 1.9 cm posterior left hayes l cyst small cyst may be in the inferior pole left kidney. Left renal cortex appears thinned. Right r enal cortex is thinned to a lesser degree. Some chronic renal failure may be present. Delayed images were obtained through the kidneys, which remain unremarkable. Aorta: Vascular calcification is within the aorta. Inferior vena cava: Normal. CT PELVIS: There is a fat-containing left inguinal hernia. Loops of bowel within the abdomen and pelvis are normal. There are loops of bowel which are incom pletely distended or lack oral contrast limiting their evaluation. Appendix: Normal as visualized. Urinary bladder: Normal. Genitourinary structures: Prostate is prominent Osseous structures: No suspicious lytic or sclerotic lesions. Degenerative disc changes are present. Lymphadenopathy: Multiple retrocaval lymph nodes are present. These are similar to previous. A few sc attered pericaval additional lymph nodes are present. Small lymph nodes are present through the iliac chains. A couple small lymph nodes are within the inguinal regions. IMPRESSION: 1. Mediastinal adenopathy is increased in size and appears increased in number. Right hilar adenopath y is increasing. Extensive retrocaval and pericaval adenopathy is present. Some of these are enlarged which are similar size to comparison. Iliac chain adenopathy is slightly less prominent. 2. Fat-containing left inguinal hernia extending into the scrotal sac [facility] Gerard Preciado, , 09/18/2024 9:55 PM
== END | disposition home or self-care (01) ==
LOC: RADCTMAIN 07:28
PROVIDERS: ATTEND Internal Medicine Hematology & Oncology
DX: C83.08 Small cell B-cell lymphoma, lymph nodes of multiple sites (principal); C4A.61 Merkel cell carcinoma of right upper limb, including shoulder; D50.9 Iron deficiency anemia, unspecified; E78.5 Hyperlipidemia, unspecified; Z71.3 Dietary counseling and surveillance; D69.6 Thrombocytopenia, unspecified; R59.0 Localized enlarged lymph nodes; K40.90 Unilateral inguinal hernia, without obstruction or gangrene, not specified as recurrent
CPT/HCPCS: 82565; 84520; 71260; 74177; 36415; Q9967

== ENCOUNTER → 2024-11-20 | Outpatient (CLI) | payer MEDICARE ==
[2024-11-20 10:52] LABS: HCT 45.5 % (39.6-50.0); HGB 14.9 g/dL (13.0-17.0); MCH 28.5 pg (27.0-32.0); MCHC 32.7 g/dL (32.0-37.0); Mean Platelet Volume 10.5 FL (9.5-12.2); NRBC Per 100 WBC 0 X 10*3/uL (0.00-0.01); Platelet Count 146 X 10*3/uL (140-440); RBC 5.23 X 10*6/uL (4.40-5.60)
[2024-11-20 11:13] LABS: % Iron Saturation 14.54 (15.00-50.00); ALT 34 U/L (10-49); AST 23 U/L (14-35); Albumin 3.8 g/dL (3.8-4.9); Albumin/Globulin Ratio 1.65 Ratio (1.60-3.17); Alkaline Phosphatase 110 U/L (41-126); BUN/Creat Ratio 24.88 Ratio (12.00-20.00); Blood Urea Nitrogen 19.9 mg/dL (9.0-27.0); Calcium 9.2 mg/dL (8.7-10.3); Carbon Dioxide 23.4 mmol/L (21.6-31.8); Chloride 106 mmol/L (96-109); Chol/HDL Ratio 3.26 Ratio; Ferritin 71.6 ng/mL (22.0-322.0); Globulin 2.3 g/dL (1.6-3.3); Glucose 114 mg/dL (70-110); Iron 57 UG/DL (65-175); LDL Cholesterol,Calculated 41.5 mg/dL (0.0-131.0); Magnesium 2.1 mg/dL (1.5-2.4); Potassium 4.6 mmol/L (3.5-5.5); Sodium 140 mmol/L (135-145); Total Bilirubin 1.1 mg/dL (0.3-1.2); Total Iron Binding Capacity 392 UG/DL (228-460); Total Protein 6.1 g/dL (6.2-8.2)
[2024-11-20 11:54] LABS: Basophils # (M) 0.54 X 10*3/uL (0.00-0.10); Eosinophils # (M) 0 X 10*3/uL (0.04-0.35); Lymphocytes # (M) 5.94 X 10*3/uL (0.90-5.00); Monocytes # (M) 0.68 X 10*3/uL (0.20-1.00); Neutrophils # (M) 6.35 X 10*3/uL (1.80-7.70); Neutrophils % (M) 47 %
== END | disposition home or self-care (01) ==
LOC: LABWHC1 06:54
PROVIDERS: ATTEND Internal Medicine
DX: D64.9 Anemia, unspecified (principal); E78.5 Hyperlipidemia, unspecified; R73.9 Hyperglycemia, unspecified
CPT/HCPCS: 36415; 80053; 80061; 82607; 82728; 82746; 83036; 83540; 83550; 83735; 84443; 85025

== ENCOUNTER → 2025-03-04 | Outpatient (CLI) | payer MEDICARE ==
[2025-03-04 10:39] LABS: BUN/Creat Ratio 25.22 Ratio (12.00-20.00); Blood Urea Nitrogen 22.7 mg/dL (9.0-27.0); Carbon Dioxide 23.4 mmol/L (21.6-31.8); Chloride 106 mmol/L (96-109); Chol/HDL Ratio 3.32 Ratio; Glucose 124 mg/dL (70-110); Potassium 4.4 mmol/L (3.5-5.5); Sodium 138 mmol/L (135-145); VLDL Calculation 18.88 mg/dL (5.00-40.00)
[2025-03-04 10:40] LABS: ALT 37 U/L (10-49); AST 25 U/L (14-35); Albumin 3.9 g/dL (3.8-4.9); Albumin/Globulin Ratio 1.86 Ratio (1.60-3.17); Alkaline Phosphatase 102 U/L (41-126); Calcium 8.9 mg/dL (8.7-10.3); Globulin 2.1 g/dL (1.6-3.3); Total Bilirubin 1.4 mg/dL (0.3-1.2)
== END | disposition home or self-care (01) ==
LOC: LABWHC1 06:50
PROVIDERS: ATTEND Internal Medicine Interventional Cardiology
DX: E78.2 Mixed hyperlipidemia (principal)
CPT/HCPCS: 36415; 80053; 80061